=== PATIENT | female | born 1955 | race Caucasian/White ===

== ENCOUNTER 2017-07-30 16:15 | Inpatient (IN) | payer BC ==
[~2017-07-30 16:15] MED LIST: ISOVUE-370 76%-LOCM 1 ML ONE
[2017-07-30] MEDS ORDERED: Morphine 4 MG/ML VIAL ONE ×3 (19:13→21:30)
[2017-07-30] MEDS ORDERED: Ondansetron HCl/PF 4 MG/2 ML Vial ONE (19:13)
[2017-07-30 19:29] LABS: #Basophils 0.1 thou/uL (0.0-0.2); #Lymphocytes 1.6 thou/uL (1.20-3.40); #Monocytes 0.9 thou/uL (0.11-0.59); #Neutrophils 15.8 thou/uL (1.40-6.50); %Basophils 0.3 % (0.0-1.0); %Eosinophils 0.3 % (0.0-10.0); %Lymphocytes 8.8 % (21.0-51.0); %Monocytes 4.9 % (0.0-10.0); %Neutrophils 85.8 % (42.0-75.0); Hemoglobin 16.3 g/dL (12.0-16.0); Mean Corpuscular HGB CONC 34.5 g/dL (32.0-36.0); Mean Corpuscular Volume 89.8 fl (81.0-99.0); Mean Platelet Volume 9.1 fL (7.4-10.4); Platelet Count 296 thou/uL (130-400); RBC Distribution Width 13.2 % (11.5-14.5); Red Blood Cell (RBC) Count 5.27 mill/uL (4.20-5.40); White Blood Cell (WBC) Count 18.5 thou/uL (4.8-10.8)
[2017-07-30 19:42] LABS: ALT (SGPT) 16 U/L (8-55); AST (SGOT) 24 U/L (5-34); Albumin 5.1 g/dL (3.4-4.8); Alkaline Phosphatase 74 U/L (40-150); Anion Gap 20 mmol/L (10-20); BUN (Urea Nitrogen) 26 mg/dL (9.8-20.1); Bilirubin, Total 0.7 mg/dL (0.2-1.2); Calc. Creatinine Clearance 0 mL/min (70-130); Calcium 11.2 mg/dL (7.8-10.44); Carbon Dioxide 23 mmol/L (23-31); Chloride 102 mmol/L (98-107); Estimated GFR-MDRD 46; Globulin 4.1 g/dL (2.4-3.5); Glucose 153 mg/dL (80-115); Lipase 30 U/L (8-78); Potassium 3.4 mmol/L (3.5-5.1); Protein, Total 9.2 g/dL (6.0-8.3); Sodium 142 mmol/L (136-145)
[2017-07-30 21:03] LABS: Bilirubin Small (Negative); Blood, Urine Negative (Negative); Clarity CLEAR (Clear); Glucose, Urine (Dipstick) Negative (Negative); Leukocyte Trace (Negative); Nitrite Negative (Negative); Protein, Urine (Dipstick) 30 mg/dL (Neg-Trace); Urobilinogen 0.2 mg/dL (0.2-1.0); pH, Urine 5.5 (5.0-9.0)
[2017-07-30 21:05] LABS: Bacteria/HPF None Seen HPF (None Seen); Specific Gravity, Urine 1.046 (1.002-1.036)
[2017-07-30 21:06] LABS: Pathc Cast-AUWi Flag 8.14 (0-2.49)
[2017-07-30] MEDS ORDERED: Lidocaine 2% Jelly 5 ML TUBE ONE (21:08)
[2017-07-30] MEDS ORDERED: Benzocaine 20% Spray 60 ML CAN ONE (21:08)
--- NOTE | 2017-07-30 22:16 | RAD ---
ABDOMEN ONE VIEW: 07/30/17 HISTORY: 62-year-old female with nausea and vomiting and gastric distention for NG tube placement evaluation. NG tube is in place within the stomach. Lap band is in place. Minimal dilatation of the right upper r enal collecting system down to the level of the upper ureter without evidence for an obstructing calc ulus. Postoperative changes at L4-L5. IMPRESSION: NG tube in satisfactory location. Minimal dilatation of the right renal upper collecting system possi bettie from extrinsic compression from the markedly distended stomach as seen on prior CT. POS: [facility]
--- NOTE | 2017-07-30 22:58 | CT ---
ABDOMEN AND PELVIC CT SCAN WITH IV CONTRAST: 07/30/17 HISTORY: 62-year-old female with history of nausea and vomiting and abdominal pain. FINDINGS/IMPRESSION: The lung bases are clear. There is a lap band in place. Status post cholecystectomy with some dilated central intrahepatic ductal dilatation and dilated common bile duct up to 0.9 cm. There is very rob re fluid distention of the stomach as well as the first and second portions of the duodenum with an a brupt area of narrowing from dilated to nondilated appearance at the level of the third portion of th e duodenum. The fourth portion of the duodenum as well as the small bowel and colon all appear to be somewhat decompressed. There is slight focal dilatation of the right upper renal collecting system an d right extrarenal pelvis but no evidence for renal calculus or obstructing ureteral calculus. Postop erative laminectomy and fusion changes are noted at L4-L5 with fairly marked but overall stable appea ring anterolisthesis. There is some minimal fluid in the distal esophagus probably related to reflux from the distended stomach. There is mild dilatation of the right renal pelvis and upper collecting s ystem possibly secondary to some extrinsic compression from the markedly dilated second and third por tion of the duodenum. No evidence of associated obstructing calculus. Postop changes of the lumbar sp ine, stable. Findings discussed with Dr. Whitaker by phone at 8:30 p.m. Code CR POS: [facility]
[2017-07-30] MEDS ORDERED: Ondansetron HCl/PF 4 MG/2 ML Vial IVP PRN (23:32)
[2017-07-30] MEDS ORDERED: Ondansetron ODT 4 MG TAB SL PRN (23:32)
[2017-07-31] MEDS: Dextrose 5 % And 0.9 % NaCl 1,000 ML IV SCH ×3 (00:08→20:10)
[2017-07-31] MEDS ORDERED: Morphine 4 MG/ML VIAL SLOW IVP PRN ×2 (01:03→01:04)
--- NOTE | 2017-07-31 07:56 | HP ---
CHIEF COMPLAINT: Epigastric pain, nausea, vomiting. HISTORY OF PRESENT ILLNESS: The patient is a 62-year-old female who had a lap band placed in 2004. She was not able to tolerate it and three years ago, it was completely emptied for esophageal dilatat ion. She said that she has been doing okay. She ate a very large meal on Friday, afterwards felt t errible and started vomiting. Her last bowel movement was on Friday and she has not passed any flat us since then. She had an NG tube placed and she is feeling much better now. PAST MEDICAL HISTORY: Hypothyroidism, osteoarthritis, osteoporosis. PAST SURGICAL HISTORY: She has had a lap band, bilateral total knee replacement. She has had back s urgery and hysterectomy. MEDICATIONS: She is on thyroid medicine, Actonel, nose spray, vitamin B12 and D. ALLERGIES: No known drug allergies. FAMILY HISTORY: Lymphoma, prostate cancer and hypertension. 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 No tobacco, rare alcohol. PHYSICAL EXAMINATION: VITAL SIGNS: Temperature 98.3, pulse 77, blood pressure 96/87. GENERAL: She is awake, alert, does not appear to be in any distress. She is obese. HEENT: She has an NG tube. LUNGS: Clear. HEART: Regular rate and rhythm. ABDOMEN: Soft, nondistended, nontender, no palpable masses except for the lap band port that is palp able. EXTREMITIES: Unremarkable. LABORATORY DATA AND IMAGING: White count yesterday was 18.5, H&H is 16 and 47, platelet count 296. Electrolytes show an elevated glucose of 153, otherwise unremarkable. She had a CT scan that showed a very dilated stomach and first and second portions of the duodenum with an abrupt obstruction at th e third portion of the duodenum. The lap band did not appear to be the source of the obstruction. ASSESSMENT: Small-bowel obstruction of the third portion of the duodenum. PLAN: Continue NG decompression. Repeat KUB. Repeat lab. Consult GI for endoscopy.
[2017-07-31 08:43] LABS: #Lymphocytes 2.2 thou/uL (1.20-3.40); #Monocytes 1.1 thou/uL (0.11-0.59); #Neutrophils 10.4 thou/uL (1.40-6.50); %Basophils 0.1 % (0.0-1.0); %Eosinophils 0.2 % (0.0-10.0); %Lymphocytes 16.1 % (21.0-51.0); %Neutrophils 75.6 % (42.0-75.0); Hemoglobin 13.5 g/dL (12.0-16.0); Mean Corpuscular HGB CONC 33.8 g/dL (32.0-36.0); Mean Corpuscular Hemoglobin 30.6 pg (27.0-31.0); Mean Corpuscular Volume 90.6 fl (81.0-99.0); Mean Platelet Volume 8.5 fL (7.4-10.4); Platelet Count 225 thou/uL (130-400); RBC Distribution Width 13.2 % (11.5-14.5); Red Blood Cell (RBC) Count 4.39 mill/uL (4.20-5.40); White Blood Cell (WBC) Count 13.7 thou/uL (4.8-10.8)
[2017-07-31 09:09] LABS: Anion Gap 8 mmol/L (10-20); BUN (Urea Nitrogen) 22 mg/dL (9.8-20.1); Calc. Creatinine Clearance 88 mL/min (70-130); Calcium 9.2 mg/dL (7.8-10.44); Carbon Dioxide 30 mmol/L (23-31); Chloride 110 mmol/L (98-107); Estimated GFR-MDRD 71; Glucose 109 mg/dL (80-115); Potassium 3.2 mmol/L (3.5-5.1); Sodium 145 mmol/L (136-145)
--- NOTE | 2017-07-31 10:18 | RAD ---
KUB: Date: 07/31/17 INDICATION: Follow-up duodenal obstruction. COMPARISON: CT of abdomen and pelvis dated 07/30/17 and KUB performed on 07/30/17. FINDINGS: Gastric catheter unchanged. Laparoscopic gastric band is unchanged. The extent of the gastric dilatat ion containing enteric contrast, gas, and fluid, appear similar. There is contrast within the bladder consistent with patient's recent CT evaluation. Cholecystectomy clips are again noted. Posterior lum bar interbody fusion construct at L4-5 is similar. No acute osseous abnormalities are evident. IMPRESSION: Stable exam. POS: [facility]
[2017-07-31] MEDS ORDERED: Promethazine HCl 25 MG/ML VIAL IM PRN (14:16)
[2017-07-31] MEDS ORDERED: Promethazine HCl 25 MG/ML VIAL SLOW IVP PRN (14:16)
[2017-07-31] MEDS ORDERED: Ondansetron HCl/PF 4 MG/2 ML Vial IVP PRN ×2 (14:16→16:25)
[2017-07-31] MEDS ORDERED: Fentanyl 100 MCG/2 ML VIAL ONE (14:28)
[2017-07-31] MEDS ORDERED: Succinylcholine Chloride 20 MG/ML 10 ml SYRINGE FS ONE (14:35)
[2017-07-31] MEDS ORDERED: ePHEDrine/0.9% NaCl/PF SYRINGE 50 mg/10 ml ONE (14:35)
[2017-07-31] MEDS ORDERED: PROPOFOL 200 MG/20 ML VIAL ONE (14:35)
[2017-07-31] MEDS ORDERED: Lidocaine 1% PF 5 ML VIAL ONE (14:35)
--- NOTE | 2017-07-31 17:14 | OP ---
DATE OF PROCEDURE: 07/31/2017 PROCEDURE PERFORMED: Esophagogastroduodenoscopy and enteroscopy performed with a colonoscope with pl acement of Dobbhoff tube. OPERATIVE NOTE: Informed consent was obtained from the patient. She was sedated with general anesth esia. The colonoscope was advanced to the proximal jejunum. There was external compression causing a functional obstruction at the third portion of the duodenum. There was no mucosal defect in this a germaine to indicate biopsy. The mucosa beyond and proximal to this site was normal. The duodenum was ot herwise normal. The stomach had some gastritis in the body and fundus from distention along with rosalina e NG suction trauma. Otherwise, the stomach was unremarkable. There was grade C erosive esophagitis in the distal esophagus noted. The stomach was normal otherwise including retroflexed views. There was an impression of the lap band a couple of centimeters below the GE junction has to be expected. The Dobbhoff tube was placed into the stomach and then grasped with a biopsy forceps. The Dobbhoff t ube was advanced into the second portion of the duodenum; however, could not be advanced beyond the c ompressing segment well. The Dobbhoff tube was then grasped at the tip of the tube with a snare and pulled through beyond the area of compression and to the distal duodenum, however, when the Dobbhoff tube was released from the snare to then, placed a Hemoclip to hold in place a Dobbhoff tube just fel l back into the stomach. Ultimately, a Resolution Hemoclip was used to then grasp suture that was pl aced and the end of the Dobbhoff tube and that was used to pull the tip of the Dobbhoff tube forward and then the clip was used to attach the end of the Dobbhoff tube to the mucosa of the small bowel di stal to the obstructing segment. This took a prolonged period of time and was difficult to advance t he tube and scope beyond the area in the small bowel of compression. Ultimately, the tube was placed and the scope was pulled back and a Dobbhoff tube remained appeared to remain in good position. Fin ally, the NG tube was then replaced to decompress the stomach. IMPRESSION: 1. Grade C erosive esophagitis in the distal esophagus. 2. Retained vegetable material in the fundus and proximal body of the stomach. This was too solid t o suction out with the scope. 3. Gastritis in the body and fundus of the stomach, likely secondary to gastric distention. There w as some nasogastric trauma noted. The impression from the lap band was noted a couple of centimeters below the gastroesophageal junction. 4. Functional obstruction in the third portion of the duodenum secondary to external compression. 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 There is no mucosal lesion in this area. The small bowel proximal and distal to this all the way down to the proximal jejunum appears normal . 5. A Dobbhoff tube was placed to the fourth portion of the duodenum. This was attached using a reso lution clip attaching this to a suture placed to the end of the Dobbhoff tube and attaching it to the mucosa. 6. Nasogastric tube was placed to decompress the stomach. RECOMMENDATIONS: 1. NG tube to low intermittent suction. 2. Check an abdominal x-ray to confirm the area of placement of the Dobbhoff tube. 3. It should be okay to feed through the Dobhoff tube pending results of the x-ray and her clinical course.
--- NOTE | 2017-07-31 17:59 | RAD ---
KUB: 07/31/17 HISTORY: 62-year-old female with history of evaluating Dobhoff tube placement. An NG tube is in place. Lap ban d is in place. The Dobhoff tube appears to extend through the pylorus, C-loop and into the region of the fourth portion of the duodenum and probably the proximal jejunum with a small associated clip. IMPRESSION: Dobhoff tube in place. Findings discussed with Dr. Plasencia at 5:20 p.m. Code CR POS: [facility]
--- NOTE | 2017-07-31 18:04 | CON ---
DATE OF CONSULTATION: 07/31/2017 CHIEF COMPLAINT: Nausea and vomiting. HISTORY OF PRESENT ILLNESS: Ms. Carroll is a 62-year-old woman who had sudden onset of nausea and vomiting and diffuse aching abdominal pain that started the day before yesterday. She vomited multi ple times throughout the day. She tried going on a liquid diet or clear liquids and just continued t o vomit though, so she ultimately came onto the emergency room yesterday after feeling weak and dehyd rated. She had imaging performed which showed marked distention of the stomach and dilation of the f irst and second portions of the small bowel up to the third portion of the small bowel. She had an N G tube placed to suction and had a large amount of fluid returned and she had immediate relief of the nausea and pain. She quit putting output through the NG tube and then her pain came back this morni ng. She received some morphine for that. When she came downstairs to the preop area, but prior to e ndoscopy, she shifted her body and the suction tubing and she then immediately had another 600 mL ret urn from the NG tube and again her pain and nausea immediately resolved. She has had no nausea or vo miting prior to this. She had a lap band placed in 2004. She lost from 280 pounds to 170 pounds ove r the first couple years of having the lap band. Her weight has been fairly stable over the last few years. Three years ago, she had esophageal symptoms and underwent endoscopy by Dr. Moreland. She had all the fluid removed from her lap band by Dr. Olvera and she has done fine over the last 3 years up u ntil now. Her weight has been stable recently. Abdominal pain leading up to this. No diarrhea, con stipation or blood in the stool. PAST MEDICAL HISTORY: Hypothyroidism, osteoarthritis, and osteoporosis. PAST SURGICAL HISTORY: Bilateral total knee replacements, back surgery with hardware, hysterectomy, lap band endoscopy, and cholecystectomy. FAMILY HISTORY: Positive for lymphosarcoma in her father. There is no family history of GI malignan cy. SOCIAL HISTORY: Alcohol, maybe 3 times per year. No drugs or smoking. ALLERGIES: No known drug allergies. MEDICATIONS: Prior to admission, thyroid medicine and Actonel, B12, vitamin D. REVIEW OF SYSTEMS: Negative x10 systems reviewed except as stated in history of present illness. PHYSICAL EXAMINATION: VITAL SIGNS: Temperature 98.7, pulse 64, blood pressure 116/73. GENERAL: She is in no acute distress. She is alert and oriented x3. She has an NG tube in place. HEENT: Eyes have no scleral icterus. Oropharynx is clear without lesions. NECK: No cervical or supraclavicular lymphadenopathy. LUNGS: Clear to auscultation bilaterally. HEART: Regular rate and rhythm. ABDOMEN: Soft, currently nontender, nondistended. Bowel sounds are present. EXTREMITIES: No lower extremity edema. LABORATORY DATA: White blood cell count on presentation was 18.5 yesterday, down to 13.7 today. Her hemoglobin was 16.3 yesterday and came down to 13.5 with hydration, platelets 225. Creatinine 0.81 today, down from 1.19 yesterday. Sodium 145, potassium 3.2, chloride 110, CO2 30, calcium 9.2, bilir ubin 0.7, AST 24, ALT 16, alkaline phosphatase 74, albumin was 5.1 yesterday prior to hydration and l ipase 30. CT scan of the abdomen and pelvis yesterday showed the lap band to be in place. Changes w ith prior cholecystectomy were noted. Severe fluid distention of the stomach, and first and second p ortions of the duodenum were noted with an abrupt area of narrowing at the level of the third portion of the duodenum. The distal duodenum was decompressed. IMPRESSION: Proximal obstruction of the upper GI tract at the level of the third portion of the duod enum. She has marked dilation of the second and first portions of the duodenum and stomach. She had immediate relief of her symptoms with NG decompression. She did lose 110 pounds following lap band; however, that has been 10 years ago almost. At this point, SMA syndrome is possible; however, would not seem likely. Endoscopy is planned to rule out an obstructing ulcer or neoplastic process. PLAN: Enteroscopy/EGD today.
[2017-07-31] MEDS ORDERED: Chloraseptic Spray 180 ml Bottle PO PRN (20:59)
[2017-08-01 04:19] LABS: #Lymphocytes 2.1 thou/uL (1.20-3.40); #Monocytes 0.9 thou/uL (0.11-0.59); #Neutrophils 8.2 thou/uL (1.40-6.50); %Basophils 0.2 % (0.0-1.0); %Eosinophils 0.3 % (0.0-10.0); %Lymphocytes 18.7 % (21.0-51.0); %Monocytes 8.3 % (0.0-10.0); %Neutrophils 72.5 % (42.0-75.0); Hemoglobin 12.4 g/dL (12.0-16.0); Mean Corpuscular HGB CONC 34.6 g/dL (32.0-36.0); Mean Corpuscular Hemoglobin 31.8 pg (27.0-31.0); Mean Corpuscular Volume 91.7 fl (81.0-99.0); Platelet Count 168 thou/uL (130-400); RBC Distribution Width 13.4 % (11.5-14.5); White Blood Cell (WBC) Count 11.3 thou/uL (4.8-10.8)
[2017-08-01] MEDS: Dextrose 5 % And 0.9 % NaCl 1,000 ML IV SCH (06:03)
[2017-08-01] MEDS: D5 1/2 NS w/20 mEq KCL 1,000 ML IV SCH ×3 (10:08→20:46)
--- NOTE | 2017-08-01 10:52 | RAD ---
TWO SEPARATE IMAGES FROM A KUB: INDICATION: Duodenal obstruction. COMPARISON: Prior exam dated 07/31/17 at 5:04 p.m. FINDINGS: Dobbhoff feeding tube tip projects in the region of the jejunum. Gastric catheter projects in the re gion of the gastric body. Bowel gas pattern is not appreciably changed. The gastric band is unchang ed. Scattered interstitial prominence involving the lung bases is similar. Cholecystectomy clips ar e again seen within the right upper quadrant. There are postsurgical changes involving the lower lum bar spine. There are scattered degenerative changes. IMPRESSION: Stable. POS: [facility]
[2017-08-01] MEDS ORDERED: Pantoprazole 40 MG VIAL IVP SCH (11:00)
[2017-08-01] MEDS: Pantoprazole 40 MG VIAL IVP SCH (20:46)
--- NOTE | 2017-08-01 23:07 | PRG ---
DATE OF SERVICE: 08/01/2017 SUBJECTIVE: Ms. Carroll can feel when her stomach gets more distended and then when the NG suctio n repositions and suctions more fluid out, she feels better. She is tolerating her Dobbhoff tube fee ds at a slow rate so far well. She has had no vomiting. She has no pain currently. OBJECTIVE: VITAL SIGNS: Temperature 99.0, pulse 60, blood pressure 127/77. GENERAL: She is in no acute distress. She is awake and alert, oriented x3. HEENT: Eyes have no scleral icterus. Oropharynx is clear, without lesions. NECK: No cervical or supraclavicular lymphadenopathy. LUNGS: Clear to auscultation bilaterally. HEART: Regular rate and rhythm without murmur. ABDOMEN: Soft, minimal tenderness in the epigastric region without guarding. Bowel sounds are prese nt. EXTREMITIES: No lower extremity edema. LABORATORY DATA: White blood cell count 11.3 down from 18.5 on presentation, hemoglobin 12.4, platel ets 168, creatinine 0.81. IMPRESSION: Obstruction at the third or fourth portion of the duodenum, which could be from compress ion from gastric distention. Some degree of superior mesenteric artery syndrome has been considered; however, this does not appear to be at the area of the acute angle and does not appear to be obvious ly impinged by these arteries. There was significant external compression, however, and she still co ntinues to have significant NG output despite suction all day today. Hopefully, as her stomach decom presses and the muscles are able to start liza again, we will see clinical improvement. In e meantime, she can continue with the Dobbhoff tube feeds. PLAN: 1. Continue suction with the NG tube. 2. Continue feeds through the Dobbhoff tube.
[2017-08-02] MEDS: D5 1/2 NS w/20 mEq KCL 1,000 ML IV SCH ×4 (02:09→15:57)
[2017-08-02] MEDS: Levothyroxine 100 MCG SDV IVP SCH (05:15)
[2017-08-02] MEDS: Pantoprazole 40 MG VIAL IVP SCH ×2 (08:35→20:27)
--- NOTE | 2017-08-02 08:51 | PDOC.GSPN ---
Surgery Progress Note: Subj - Subjective Patient reports: no new complaints, feels better (no nausea or vomiting) Surgery Progress Note: Obj - Vital signs Vital signs: Vital Signs - Most Recent Temp Pulse Resp BP Pulse Ox 98.4 F 65 16 122/75 94 L 08/02/17 07:42 08/02/17 07:42 08/02/17 07:42 08/02/17 07:42 08/02/17 07:42 - Physical Exam General: no distress Cardiovascular: regular rate and rhythm Respiratory: clear to auscultation Abdomen: soft, non tender, nondistended Surgery Progress Note: Results - Labs Result Diagrams: 08/01/17 03:12 07/31/17 08:00 Surgery Progress Note: A/P - Problem (1) Duodenal obstruction Current Visit: Yes Code(s): K31.5 - OBSTRUCTION OF DUODENUM Status: Acute Assessment and Plan: Continue TF and stomach decompression. Her NG output has dropped off, expect will need NG for next few days. Gastrojejunostomy next week if obstruction fails to resolve
[2017-08-02] MEDS ORDERED: Potassium Chloride 40 MEQ in Premix Bag 1 BAG IVPB SCH (09:00)
--- NOTE | 2017-08-02 15:11 | PRG ---
DATE OF SERVICE: 08/02/2017 SUBJECTIVE: Ms. Carroll has no abdominal pain or nausea. She has had the NG tube to suction and has continued to put out around 400 mL over the course of the morning. She is tolerating her tube fe eds well. She had a very small bowel movement today. PHYSICAL EXAMINATION: VITAL SIGNS: Temperature 98.8, pulse 67, blood pressure 132/78. GENERAL: She is in no acute distress, alert and oriented x3. LUNGS: Clear to auscultation bilaterally. HEART: Regular rate and rhythm. ABDOMEN: Soft, nontender, nondistended. Bowel sounds are present. EXTREMITIES: No lower extremity edema. IMPRESSION: Duodenal obstruction, apparently from external compression as there is no mucosal defect identified endoscopically. PLAN: 1. Continue NG tube decompression. 2. She is tolerating her tube feeds well, currently at goal. The Dobbhoff tube is placed beyond the obstruction. 3. The next step would be Gastrografin study to determine if the obstruction is opening up after gas tric decompression. Timing of this will be determined by General Surgery, possibly around Friday.
[2017-08-03] MEDS: D5 1/2 NS w/20 mEq KCL 1,000 ML IV SCH ×2 (01:44→05:46)
[2017-08-03] MEDS: Levothyroxine 100 MCG SDV IVP SCH (01:44)
[2017-08-03 04:37] LABS: Anion Gap 6 mmol/L (10-20); BUN (Urea Nitrogen) 7 mg/dL (9.8-20.1); Calc. Creatinine Clearance 112 mL/min (70-130); Calcium 8.3 mg/dL (7.8-10.44); Carbon Dioxide 30 mmol/L (23-31); Chloride 106 mmol/L (98-107); Estimated GFR-MDRD 87; Glucose 106 mg/dL (80-115); Sodium 139 mmol/L (136-145)
[2017-08-03 05:25] VITALS: BMI 34.2
[2017-08-03] MEDS: Pantoprazole 40 MG VIAL IVP SCH ×2 (09:31→21:30)
--- NOTE | 2017-08-03 10:37 | PRG ---
DATE OF SERVICE: 08/03/2017 SUBJECTIVE: Ms. Carroll feels better. She has had a few small bowel movements and she is passing gas. No persistent nausea. She is afebrile. Vital signs are stable and her NG output is down. Brooklynn thayer is tolerating the tube feeds. ASSESSMENT: Gastric outlet obstruction in third portion of duodenum. NG output seems to be down now and it appears not as bilious. PLAN: We will order a Gastrografin or barium study to assess for gastric emptying tomorrow. Seems to be less NG output, I suspect it will be more passage now. Continue tube feeds for now.
--- NOTE | 2017-08-03 15:09 | PRG ---
DATE OF SERVICE: 08/03/2017 SUBJECTIVE: Ms. Carroll says she feels better overall. She is tolerating the Dobbhoff tube feeds well. She had a few small bowel movements yesterday, but none so far today. No vomiting. She has had the NG tube still to intermittent suction. OBJECTIVE: VITAL SIGNS: Temperature 99.3, pulse 58, blood pressure 133/77. GENERAL: She is in no acute distress, awake and alert. LUNGS: Clear to auscultation bilaterally. HEART: Regular rate and rhythm. ABDOMEN: She has the Dobbhoff tube and NG tube in place. EXTREMITIES: Have no lower extremity edema. LABORATORY DATA: Creatinine 0.68. IMPRESSION: Duodenal obstruction from apparent external compression. There is no mucosal defect on endoscopy. She has a Dobbhoff beyond the obstruction and an NG tube in place to suction. RECOMMENDATIONS: The plan is for small bowel follow through with upper GI tomorrow with Gastrografin .
[2017-08-04] MEDS: D5 1/2 NS w/20 mEq KCL 1,000 ML IV SCH ×2 (02:14→08:00)
[2017-08-04] MEDS: Levothyroxine 100 MCG SDV IVP SCH (05:30)
[2017-08-04] MEDS: Pantoprazole 40 MG VIAL IVP SCH ×2 (08:02→21:05)
--- NOTE | 2017-08-04 08:49 | PRG ---
DATE OF SERVICE: 08/04/2017 SUBJECTIVE: Ms. Carroll had a formed bowel movement last night. She has no abdominal pain or saritha sea. Having more of a clear brown output from the NG tube. PHYSICAL EXAMINATION: VITAL SIGNS: Temperature 97.7, pulse 65, blood pressure 136/84. GENERAL: She is in no acute distress, awake and alert. LUNGS: Clear to auscultation bilaterally. HEART: Regular rate and rhythm. ABDOMEN: Soft, nontender, nondistended. Bowel sounds are present. EXTREMITIES: No lower extremity edema. IMPRESSION: Duodenal obstruction. PLAN: Gastrografin study today.
--- NOTE | 2017-08-04 12:53 | RAD ---
SMALL BOWEL FOLOW THROUGH: HISTORY: History of duodenal obstruction. FINDINGS: [employer] images demonstrate a Dobbhoff feeding, the tip seen within the region of the jejunum. There is a gastric catheter tip within the region of the proximal gastric body. Cholecystectomy clips were s een in the right upper quadrant. There is postsurgical change of a posterolateral interbody fusion o f L4-5 that is stable. The bowel gas pattern is unobstructed. Subsequent images demonstrate contrast opacification of the stomach with contrast flowing freely acro ss the duodenum and duojejunal junction. Subsequent images were obtained over an hour and a half wh ch demonstrated normal small bowel caliber and mucosal pattern. The stomach is of normal size. The duodenum appeared normal in caliber. IMPRESSION: 1. No evidence of significant small bowel obstruction. The stomach is markedly less distended than seen on a comparison CT dated 07/30/17. 2. Small bowel follow through time of 1 hour and 30 minutes. POS: [facility]
[2017-08-04] MEDS ORDERED: MD-Gastroview 120 ML BOT ONE (14:51)
[2017-08-05] MEDS: D5 1/2 NS w/20 mEq KCL 1,000 ML IV SCH ×2 (03:58→17:35)
[2017-08-05] MEDS: Levothyroxine 100 MCG SDV IVP SCH (04:40)
[2017-08-05] MEDS: Pantoprazole 40 MG VIAL IVP SCH ×2 (07:52→21:20)
--- NOTE | 2017-08-05 14:08 | TCOM ---
DATE OF SERVICE: 08/05/2017 SUBJECTIVE: The patient is feeling much better. She is tolerating clear liquids well. No nausea or vomiting. Her NG has been clamped since yesterday. The upper GI showed no obstruction. OBJECTIVE: VITAL SIGNS: Temperature is 98, pulse 72, and blood pressure 124/82. GENERAL: She looks fine. She walks around. ABDOMEN: Soft, nondistended, nontender. ASSESSMENT: Obstruction, resolved. PLAN: Full liquid diet. Discontinue tube feedings. Discontinue NG tube, home soon.
--- NOTE | 2017-08-06 | PRG ---
DATE OF SERVICE: 08/05/2017 SUBJECTIVE: Ms. Cardoso has tolerated full liquids pretty well so far today. She felt pressure a nd fullness in her epigastric region initially then got up and walked around and that improved. OBJECTIVE: VITAL SIGNS: Temperature 98.3, pulse 72, blood pressure 110/71. GENERAL: She is in no acute distress, awake and alert. Her NG tube is out. Her Dobbhoff tube is in place. LUNGS: Clear to auscultation bilaterally. HEART: Regular rate and rhythm. ABDOMEN: Soft, nontender, nondistended. Bowel sounds are present. EXTREMITIES: No lower extremity edema. IMPRESSION: Duodenal obstruction. This is clinically improved and the small bowel x-ray showed cont rast passed through the obstruction well. She has the Dobhoff tube in place, anchored by a clip to t he proximal jejunum. RECOMMENDATIONS: 1. Advance to a low residue diet when okay with General Surgery. 2. We will leave the Dobbhoff tube in place to verify that she is tolerating solid foods for several days before we pulled the Dobbhoff tube. Once the Dobbhoff tube is ready to come out. If it appear s to be anchored firmly to the small bowel then we will plan enteroscopy to relook at the clip site w hen it is time to remove the tube, so this can be done under direct visualization and treatment could be potentially applied if any bleeding occurs at the site of removal of the clip. Usually these cli ps will just necrose and slough off after about a week; however, they can remain for a longer period and therefore, traction might need to be applied to remove the clip again under direct visualization, if it does not come loose on its own. I would anticipate this would be done as an outpatient qamar rubalcava days after she is tolerating solid diet.
[2017-08-06] MEDS: Levothyroxine 100 MCG SDV IVP SCH (05:32)
[2017-08-06] MEDS: D5 1/2 NS w/20 mEq KCL 1,000 ML IV SCH (05:33)
--- NOTE | 2017-08-06 08:10 | DIS ---
DISCHARGE DIAGNOSIS: Duodenal obstruction due to gastric over distention with closed loop obstructio n. PROCEDURES DURING ADMISSION: CT scan of abdomen and pelvis, EGD, placement of distal feeding tube be yond obstructive point. HOSPITAL COURSE: The patient was admitted, given IV fluids. CT scan showed a massive stomach. NG t ube was placed. It was full of solid food. Some relief was obtained just by doing the suction. EGD was performed that did not show any physical luminal obstruction, but an extrinsic compression. In review with the radiologist, it appeared that the stomach had become so massively dilated it was putt ing pressure on the duodenum. A feeding tube was placed distal to this obstruction and held in place with a clip by the manager of radiology. She did well. Everything went through. She is now feeling fine. Repeat swallow study was fine. She was started on liquids. She is tolerating them well. She is discharged home with the feeding tube in place. The manager of radiology does not want to pull it out at this point, because it was so hard to put in. He wants to keep her on a soft diet. He will s ee her back in 2 weeks.
[2017-08-06] MEDS: Pantoprazole 40 MG VIAL IVP SCH (09:31)
[2017-08-06 09:40] VITALS: BP 118/76
[2017-08-06 12:07] VITALS: TEMP 97.9
--- NOTE | 2017-08-06 12:47 | PRG ---
DATE OF SERVICE: 08/06/2017 SUBJECTIVE: Ms. Carroll is tolerating a full liquid diet well. PHYSICAL EXAMINATION: VITAL SIGNS: Temperature 97.9, pulse 56, blood pressure 118/76. GENERAL: She is in no acute distress. She is alert and oriented x3. LUNGS: Clear to auscultation bilaterally. HEART: Regular rate and rhythm. ABDOMEN: Soft, nontender, nondistended. Bowel sounds are present. EXTREMITIES: No lower extremity edema. IMPRESSION: Duodenal obstruction, apparently from external compression. This has been better with d ecompression of her stomach. She is tolerating a full liquid diet well so far. RECOMMENDATIONS: 1. She should be able to advance to a low residue diet as tolerated based on General Surgery recomme ndations. 2. Follow up in the office in 1 week. If she continues to tolerate a solid diet well, then the next day we can perform enteroscopy to assist removal of the Dobbhoff tube which is anchored in place in the distal duodenum/proximal jejunum with a clip.
== END 2017-08-06 12:55 | disposition home or self-care (01) | DRG 382 ==
LOC: ERS 16:15 → SURG A 23:15
PROVIDERS: ADMIT Surgery; ATTEND Surgery
PROC: 0DH98UZ Insertion of Feeding Device into Duodenum, Via Natural or Artificial Opening Endoscopic (ICD-10-PCS; principal; 2017-07-31)
PROC: 0DJ08ZZ Inspection of Upper Intestinal Tract, Via Natural or Artificial Opening Endoscopic (ICD-10-PCS; 2017-07-31)
DX: K31.5 Obstruction of duodenum (principal); E03.9 Hypothyroidism, unspecified; M81.0 Age-related osteoporosis without current pathological fracture; K29.70 Gastritis, unspecified, without bleeding; K20.8 Other esophagitis; K31.89 Other diseases of stomach and duodenum; Z79.899 Other long term (current) drug therapy; Z96.653 Presence of artificial knee joint, bilateral
CPT/HCPCS: 36415; 74018; 74177; 74250; 80048; 80053; 81003; 81015; 83690; 85025; 96361; 96374; 96375; 96376; A4216; C9113; J2001; J2270; J2405; J2704; J3010

== ENCOUNTER 2017-08-12 16:14 | Outpatient (CLI) | payer BC | END 2017-08-14 16:15 | disposition home or self-care (01) | LOC: BICRAD 08-14 16:14 | PROVIDERS: ATTEND Internal Medicine Gastroenterology | DX: Z43.1 Encounter for attention to gastrostomy (principal) | CPT/HCPCS: 74018 ==

== ENCOUNTER 2017-10-22 19:30 | Outpatient (CLI) | payer BC | END 2017-10-22 19:31 | disposition home or self-care (01) | LOC: SLEEPLAB 19:30 | PROVIDERS: ATTEND Otolaryngology | DX: G47.33 Obstructive sleep apnea (adult) (pediatric) (principal) | CPT/HCPCS: 95810 ==

== ENCOUNTER 2017-10-26 19:30 | Outpatient (CLI) | payer BC | END 2017-10-26 19:31 | disposition home or self-care (01) | LOC: SLEEPLAB 19:30 | PROVIDERS: ATTEND Otolaryngology | DX: G47.33 Obstructive sleep apnea (adult) (pediatric) (principal) | CPT/HCPCS: 95811 ==

== ENCOUNTER 2018-01-13 19:30 | Outpatient (CLI) | payer BC | END 2018-01-13 19:31 | disposition home or self-care (01) | LOC: SLEEPLAB 19:30 | PROVIDERS: ATTEND Internal Medicine | DX: G47.33 Obstructive sleep apnea (adult) (pediatric) (principal); E66.9 Obesity, unspecified; Z68.28 Body mass index [BMI] 28.0-28.9, adult | CPT/HCPCS: 95810 ==

== ENCOUNTER 2018-03-25 12:02 | Outpatient (CLI) | payer BC | END 2018-03-25 12:03 | disposition home or self-care (01) | LOC: BICMAMMO 12:02 | PROVIDERS: ATTEND Obstetrics & Gynecology | DX: Z12.31 Encounter for screening mammogram for malignant neoplasm of breast (principal); Z80.3 Family history of malignant neoplasm of breast | CPT/HCPCS: 77063; 77067 ==

== ENCOUNTER 2018-07-20 09:05 | Inpatient (IN) | payer BC ==
[2018-07-20] MEDS ORDERED: Morphine 4 MG/ML VIAL ONE ×2 (09:53→11:00)
[2018-07-20] MEDS ORDERED: Ondansetron PF 4 MG/2 ML Vial ONE ×3 (09:54→14:11)
[2018-07-20 09:58] LABS: #Lymphocytes 1.5 thou/uL (1.20-3.40); #Monocytes 0.4 thou/uL (0.11-0.59); #Neutrophils 7.9 thou/uL (1.40-6.50); %Basophils 0.1 % (0.0-1.0); %Eosinophils 0.2 % (0.0-10.0); %Lymphocytes 15.5 % (21.0-51.0); %Monocytes 3.6 % (0.0-10.0); %Neutrophils 80.6 % (42.0-75.0); Hemoglobin 15.1 g/dL (12.0-16.0); Mean Corpuscular HGB CONC 33.2 g/dL (32.0-36.0); Mean Corpuscular Hemoglobin 30.3 pg (27.0-31.0); Mean Corpuscular Volume 91.2 fL (78.0-98.0); Mean Platelet Volume 9.4 fL (7.4-10.4); Platelet Count 228 thou/uL (130-400); RBC Distribution Width 13.5 % (11.5-14.5); Red Blood Cell (RBC) Count 5.01 mill/uL (4.20-5.40); White Blood Cell (WBC) Count 9.8 thou/uL (4.8-10.8)
[2018-07-20 10:20] LABS: ALT (SGPT) 19 U/L (8-55); AST (SGOT) 21 U/L (5-34); Albumin 4.6 g/dL (3.4-4.8); Alkaline Phosphatase 92 U/L (40-150); Anion Gap 14 mmol/L (10-20); BUN (Urea Nitrogen) 16 mg/dL (9.8-20.1); Bilirubin, Total 0.8 mg/dL (0.2-1.2); Calc. Creatinine Clearance 0 mL/min (70-130); Calcium 11.5 mg/dL (7.8-10.44); Carbon Dioxide 30 mmol/L (23-31); Chloride 105 mmol/L (98-107); Estimated GFR-MDRD 59; Globulin 3.6 g/dL (2.4-3.5); Glucose 134 mg/dL (80-115); Lipase 48 U/L (8-78); Potassium 3.6 mmol/L (3.5-5.1); Protein, Total 8.2 g/dL (6.0-8.3); Sodium 145 mmol/L (136-145)
[2018-07-20] MEDS ORDERED: Benzocaine 20% Spray 60 ML CAN ONE (11:12)
--- NOTE | 2018-07-20 11:32 | CT ---
CT ABDOMEN WITH CONTRAST CT PELVIS WITH CONTRAST: DATE: 07/20/18 HISTORY: 63-year-old female with abdominal pain for 1 day, and vomiting. History of SMA syndrome. COMPARISON: 07/30/17. TECHNIQUE: IV injection of iodinated contrast media: Isovue-M 300. Oral contrast media: Not administered. FINDINGS: Lap band again noted. Cholecystectomy clips again noted. Diffuse dilation of intrahepatic and extrahe patic biliary tree, unchanged. No focal solid or cystic liver mass. No abdominal aortic aneurysm. Mil dly dilated extrarenal pelvis on the right with mild dilation of calices, unchanged. No left hydronep hrosis. No splenomegaly. Stomach is again distended with fluid and high density material ingested con tents. The gastric distention is not as severe as previously. Abrupt transition of caliber of duodenu m, which is dilated and fluid-filled at the first and second stages, then abruptly becomes very narro w throughout its third stage. Jejunal and ileal loops are nondilated. In fact, ileal loops are collap sed, similar to previous CT. No signs of colonic diverticulitis. Unremarkable urinary bladder. Append ix difficult to identify. Bilateral pedicle screws at two levels in the lower lumbar spine. No ascite s or pneumoperitoneum. No pleural effusion. Lap band at esophagogastric junction. IMPRESSION: 1. Recurrence of gastric and proximal duodenal distention with abrupt transition point between secon d and third stages of the duodenum. Third stage of duodenum severely narrowed. 2. This is suspicious for superior mesenteric artery (SMA) syndrome. 3. Diffuse dilation of the biliary tree. This is unchanged, and is probably due to status post vance cystectomy. 4. Laparoscopic gastric band. JNR POS: KIRILL
[2018-07-20] MEDS ORDERED: Zolpidem Tartrate 5 MG TAB PO PRN (12:21)
[2018-07-20] MEDS ORDERED: Acetaminophen 650 MG Suppository PR PRN (12:21)
[2018-07-20] MEDS ORDERED: Ondansetron PF 4 MG/2 ML Vial IVP PRN (12:21)
[2018-07-20] MEDS ORDERED: Morphine 4 MG/ML VIAL SLOW IVP PRN (12:23)
--- NOTE | 2018-07-20 13:04 | HP ---
PRIMARY CARE PROVIDER: Dr. Barney. CHIEF COMPLAINT: The patient was referred to [facility] by [facility] Emergency Department for a small bowel obstruction. HISTORY OF PRESENT ILLNESS: "I overate and blocked my stomach." It happened before in 2018; at that time, Dr. Plasencia put a feeding tube in past the obstruction. Today, she presented with severe abdominal pain, nausea, and vomiting. No hematemesis. No melena. Nasogastric tube was put in the emergency room and she is currently comfortable. PAST MEDICAL HISTORY: Superior mesenteric artery syndrome; osteoarthritis; and hypothyroidism, on therapy. ALLERGIES: NONE. PAST SURGICAL HISTORY: Two lumbar spine surgeries; bilateral total knee replacement; lap band procedure, bariatric; hysterectomy; and cholecystectomy. FAMILY HISTORY: Father of lymphoma. Brother has prostate cancer and hypertension and other brothers had a mini stroke. SOCIAL HISTORY: . Full code status. next of kin. No tobacco. Very occasional alcohol, mainly when she goes to [place] to [facility]. REVIEW OF SYSTEMS: GENERAL: No headaches, dizziness, or fainting. HEENT: Eyes; no double vision, blurred vision, or flashing lights. Ears, no ear pain or drainage. No nasal bleeding. No trouble swallowing. CARDIAC: No chest pain, orthopnea, or paroxysmal nocturnal dyspnea. RESPIRATORY: No cough, wheezing, or asthma. GASTROINTESTINAL: See present illness. GENITOURINARY: No hematuria or dysuria. MUSCULOSKELETAL: No pain or swelling in arms or legs. NEUROLOGIC: No strokes, seizures, or focal weakness. PSYCHIATRIC: No anxiety or depression. SKIN: She has occasional rash on her arms and legs. She uses steroid cream. HEME/LYMPH: No tender or swollen lymph nodes in axilla, inguinal, or cervical area. PHYSICAL EXAMINATION: VITAL SIGNS: Blood pressure 134/79, pulse 69, and respirations 19. No pain at present. Room air sat 95%. HEAD, EYES, EARS, NOSE, AND THROAT: Revealed pupils are equal, round, reactive to light. Extraocular movements are intact. Sclerae are white. Tympanic membranes are clear. Nose is clear. Oral mucous membranes are wet. Dental hygiene is good. NECK: Supple without jugular venous distention, adenopathy, or thyromegaly. CHEST: Clear to auscultation and percussion. HEART: Regular rate and rhythm. First and second heart sounds are clear. No murmurs or gallops. ABDOMEN: Soft. Bowel sounds are present. There is no tenderness. No masses. No bruits. EXTREMITIES: Reveal no cyanosis, clubbing, or edema. PULSES: Carotid, radial, femoral, and dorsalis pedis pulses are intact. SKIN: Warm and dry without bruises or rash. HEME/LYMPH: No tender or swollen lymph nodes in the axilla, inguinal, or cervical area. NEUROLOGIC: Cranial nerves 2 through 12 are intact. Deep tendon reflexes symmetric. LABORATORY DATA: CBC is normal. Comprehensive metabolic profile shows a calcium of 11.5 and a glucose of 134, otherwise normal. IMAGING STUDIES: Abdominal and pelvis CT is consistent with bowel obstruction secondary to superior mesenteric artery syndrome. There is no EKG or chest x-ray presented. CT scan was reviewed by me. ADMITTING DIAGNOSES: 1. Small-bowel obstruction. 2. Superior mesenteric artery syndrome. 3. Nausea and vomiting. 4. Abdominal pain. 5. Hypothyroidism. PLAN: NG tube to suction, IV fluids, IV antiemetics, and morphine sulfate as needed for pain. Consult Gastroenterology, Dr. Plasencia. Job ID: [id number]
[2018-07-20] MEDS ORDERED: Dexamethasone 20 MG/5 ML VIAL ONE (14:11)
[2018-07-20] MEDS ORDERED: Lidocaine 1% PF 5 ML VIAL ONE (14:11)
[2018-07-20] MEDS ORDERED: Succinylcholine Chloride 20 MG/ML 10 ml SYRINGE FS ONE (14:11)
[2018-07-20] MEDS ORDERED: PROPOFOL 200 MG/20 ML VIAL ONE (14:11)
[2018-07-20] MEDS ORDERED: ePHEDrine 50 MG/ML VIAL ONE (14:11)
[2018-07-20] MEDS ORDERED: Rocuronium Bromide 10 MG/ML (10ML VIAL) ONE (14:11)
[2018-07-20] MEDS: Sodium Chloride 0.9% 1,000 ML IV SCH ×2 (14:41→23:12)
[2018-07-20 14:48] VITALS: BMI 30.1
[2018-07-20] MEDS ORDERED: ISOVUE-370 76%-LOCM 1 ML ONE (17:19)
[2018-07-20] MEDS: Famotidine/PF 20 mg/2ml Vial SLOW IVP SCH (20:07)
[2018-07-20] MEDS ORDERED: Fentanyl 100 MCG/2 ML VIAL ONE (21:13)
--- NOTE | 2018-07-20 23:00 | CON ---
DATE OF CONSULTATION: 07/20/2018 REASON FOR CONSULTATION: Probable SMA syndrome. CONSULTING PHYSICIAN: Enzo Hollins MD HISTORY OF PRESENT ILLNESS: The patient is a 63-year-old female with past medical history of osteoarthritis, hypothyroidism, obesity status post Lap-Band procedure and SMA syndrome, presenting with complaints of nausea and vomiting. She states that she was in her usual state of health until approximately yesterday afternoon when she began having increased nausea, vomiting, and mild abdominal pain located primarily in the midepigastric region. She had attended a function where she had consumed a cookie, watermelon, strawberry and afterward a strawberry Blizzard and after she had eaten these foodstuffs, began to experience increased nausea. The nausea worsened to the point where she had vomiting x1 at home with the expression of a large amount of fluid. This was also associated with increased abdominal bloating and lower abdominal pain characterized as more of a cramping type sensation. With her prior history of SMA syndrome and with her symptoms being very similar to a prior episode, it prompted her to seek healthcare assistance at [facility]. On admission in the ER, she had a CT scan that was consistent with an SMA syndrome and an NG tube was subsequently placed in the emergency room with decompression of the upper GI tract. Upon placement of the NG tube, she experienced significant relief from her nausea and has had no further episodes of vomiting since its placement. Currently, she denies any nausea, vomiting, fevers, chills, abdominal pain, or GI bleeding. REVIEW OF SYSTEMS: A 10-category review of systems was obtained with all responses negative except for the pertinent positives as listed in HPI. PAST MEDICAL HISTORY: As per HPI. PAST SURGICAL HISTORY: Two lumbar spine surgeries, bilateral total knee replacements, hysterectomy, cholecystectomy, and Lap-Band procedure. FAMILY HISTORY: Denies any GI malignancies. SOCIAL HISTORY: Denies tobacco or illicit drug use. Drinks approximately 1-2 drinks every 1 to 2 months. OUTPATIENT MEDICATIONS: Reviewed. ALLERGIES: NO KNOWN DRUG ALLERGIES. PHYSICAL EXAMINATION: VITAL SIGNS: Temperature 98.3, pulse 61, blood pressure 110/65, respiratory rate 18, saturating 95% on room air. GENERAL: The patient was sitting at bedside, in no acute distress. Alert and oriented x4. HEENT: Neck is supple. No JVD or scleral icterus noted. Normocephalic, atraumatic. CARDIOVASCULAR: Regular rate and rhythm with no discernible murmurs, gallops, or rubs. RESPIRATORY: Clear to auscultation bilaterally with no discernible wheezes or rales. ABDOMEN: Hypoactive bowel sounds. Soft. Mild tenderness to palpation in the midepigastric region with no significant abdominal distention. EXTREMITIES: No cyanosis, clubbing, or edema. LABORATORY DATA: CBC with a white blood cell count of 9.8, hemoglobin 15.1, hematocrit 45.7, platelets 228. Chemistry with a sodium of 145, potassium 3.6, chloride 105, CO2 30, BUN 16, creatinine 0.95, glucose 134, AST 21, ALT 19, alkaline phosphatase 92, and total bilirubin 0.8, lipase 48. IMAGING DATA: CT of the abdomen and pelvis obtained on July 20 showed diffuse dilation of the intra and extrahepatic tree, which is unchanged from previous. However, I also noted gastric distention with fluid and high-density material consistent with ingested food. There was an abrupt transition of the duodenum at the 3rd portion consistent with SMA syndrome. Lap-Band was in place, but non inflated. EGD performed on July 31, 2017, showed extrinsic compression of the duodenum and gastric extension with extensive food debris along with mild gastritis. Subsequently, a Dobhoff was placed past the extrinsic compression of the duodenum using a hemoclip in order to secure it in place. ASSESSMENT AND PLAN: The patient is a 63-year-old female with past medical history of osteoarthritis, hypothyroidism, obesity status post Lap-Band procedure and superior mesenteric artery syndrome, presenting with nausea, vomiting, abdominal pain and imaging consistent with superior mesenteric artery syndrome. Superior mesenteric artery syndrome. The patient is presenting with increased nausea, vomiting, and mild lower abdominal pain after the ingestion of a meal yesterday. With this increased nausea and vomiting, it prompted her to seek healthcare assistance at [facility] where imaging was consistent with compression of the second/third portion of the duodenum by the superior mesenteric artery. Given her history of bariatric surgery and approximately 110-pound weight loss, the loss of the fat pad between the SMA and the duodenum is likely in a more acute angle of the SMA compressing the duodenum. At this point, it is unclear if there is any additional process going on to contribute to her increased nausea, vomiting, or obstruction in the duodenum. Differential could include polyp formation, inflammation/edema or a possible GI neoplasm. RECOMMENDATIONS: 1. We would continue the patient on n.p.o. status with NG tube placed to low intermittent wall suction. 2. We will plan for EGD later on today for evaluation of the duodenum and possible placement of a Dobhoff tube past the extrinsic compression in attempt to provide nutrition of the patient. 3. The patient may need tube feeds through the Dobhoff tube for the time being based on the degree of extrinsic compression seen during the upper endoscopy. 4. Further recommendations to follow upper endoscopy. We will continue to follow. Please call with any questions. Job ID: [id number]
[2018-07-20] MEDS ORDERED: Ondansetron HCl/PF 4 MG/2 ML Vial IVP PRN (23:31)
[2018-07-20] MEDS ORDERED: Promethazine HCl 25 MG/ML VIAL IM PRN (23:31)
[2018-07-20] MEDS ORDERED: Promethazine HCl 25 MG/ML VIAL SLOW IVP PRN (23:31)
[2018-07-20] MEDS ORDERED: HYDROmorphone 2 MG/ML VIAL SLOW IVP PRN (23:31)
[2018-07-20] MEDS ORDERED: PACU-Morphine 4MG/ML VIAL SLOW IVP PRN (23:31)
--- NOTE | 2018-07-21 02:19 | OP ---
DATE OF PROCEDURE: 07/20/2018 INDICATIONS FOR PROCEDURE: Possible intestinal obstruction/superior mesenteric artery syndrome. DESCRIPTION OF PROCEDURE: After the risks and benefits of the procedure were explained to the patient including risks of bleeding, infection, perforation, reactions to anesthesia, aspiration and/or pain, informed consent was obtained. The patient was then taken to the endoscopy suite where general anesthesia was administered via Anesthesia support. Once the patient was adequately intubated and sedated, the standard gastroscope was introduced into the mouth with intubation of the esophagus, stomach, and the proximal small intestine with the findings listed below. However, the compression was noted within the 3rd portion of the duodenum and was not able to be reached with the standard gastroscope. The gastroscope was then substituted for a colonoscope, and with a push enteroscopy technique, the colonoscope was able to be advanced past the obstruction using a Dobhoff tube with a suture tied to the end of the valve of tube, it was advanced successfully on 2 occasions past the obstruction, but on both occasions upon withdrawal of the colonoscope, it remove the Dobhoff tube as well. With the unsuccessful attempts at placement of the Dobhoff tube pass the extrinsic compression of the duodenum, the procedure was aborted with all equipment removed from the patient. The patient was then transferred to PACU in satisfactory condition. FINDINGS: 1. Esophagus: Normal-appearing mucosa was seen in the proximal, mid, and distal esophagus. A small hiatal hernia was seen in the distal esophagus without any evidence of erosions or breakdown. There was no evidence of erosions, ulcerations, mass, lesions, or active/recent bleeding seen in this region. 2. Stomach: Normal-appearing mucosa was seen in the gastric cardia, fundus, body, antrum, and incisura. There was no evidence of significant amount of retained gastric fluid or retained food debris. There was no evidence of erosions, ulcerations, mass, lesions, or active/recent bleeding. 3. Duodenum: Normal-appearing mucosa was seen in the duodenal bulb and second portion of the duodenum. Decompression was seen within the 3rd portion of the duodenum. It was exquisite in nature and noted to have normal intestinal mucosa both on the proximal and distal end of this obstruction. Initially, this obstruction was not able to be traversed with the standard gastroscope and was able to be traversed with severe difficulty with the colonoscope using push enteroscopy. A Dobhoff tube was attempted to be placed and affixed to the intestinal mucosa with a hemoclip x2, but was unsuccessful on both occasions as they are due to removal of the Dobhoff upon removal of the colonoscope (the Dobhoff would withdrawal with the colonoscope). Otherwise, there was no evidence of erosions, ulcerations, mass, lesions, or active/recent bleeding. IMPRESSION: 1. Extrinsic compression of the 3rd portion of the duodenum, consistent with superior mesenteric artery syndrome. 2. Small hiatal hernia. 3. Otherwise normal upper endoscopy with no evidence of retained gastric fluid or food debris. RECOMMENDATIONS: 1. We will replace the patient's NG tube with KUB to confirm positioning. 2. Would place the patient back to low intermittent wall suction with n.p.o. until the morning. 3. Tomorrow we would clamp the NG tube and start the patient on a clear liquid diet and assess for tolerance and advance as tolerated. 4. If the patient is able to tolerate a more liquid diet, we will consider discharge to home with followup in the GI Clinic and monitoring of the SMA syndrome. 5. Would recommend optimization of nutritional status with the intent to gain weight and restore the fat pad around the duodenum/superior mesenteric artery. We will continue to follow. Please call with any questions. Job ID: [id number]
--- NOTE | 2018-07-21 06:48 | RAD ---
FRONTAL VIEW ABDOMEN KUB: INDICATIONS: Nasogastric tube placement evaluation. FINDINGS: Enteric catheter is present with SidePort at the expected region of the gastric body, and the distal tip traversing to the central aspect of the mid left abdomen. A gastric band is present. The imaged lower lung zones are free from consolidation or significant effusion. A small volume of excreted contrast is seen at the urinary bladder. IMPRESSION: 1. Enteric catheter traverses to the central aspect of the mid abdomen, to the left of midline. 2. Nonspecific bowel gas pattern. POS: NWK
[2018-07-21] MEDS: Sodium Chloride 0.9% 1,000 ML IV SCH ×2 (08:18→17:55)
[2018-07-21] MEDS: Famotidine/PF 20 mg/2ml Vial SLOW IVP SCH ×2 (08:19→20:18)
[2018-07-21] MEDS: Thyroid 60 MG TAB PO SCH (08:30)
[2018-07-21 09:21] LABS: #Lymphocytes 1.9 thou/uL (1.20-3.40); #Monocytes 0.6 thou/uL (0.11-0.59); #Neutrophils 9.3 thou/uL (1.40-6.50); %Basophils 0.1 % (0.0-1.0); %Eosinophils 0.2 % (0.0-10.0); %Lymphocytes 15.8 % (21.0-51.0); %Monocytes 4.9 % (0.0-10.0); Hemoglobin 12.3 g/dL (12.0-16.0); Mean Corpuscular HGB CONC 33.5 g/dL (32.0-36.0); Mean Corpuscular Hemoglobin 30.5 pg (27.0-31.0); Mean Corpuscular Volume 91.1 fL (78.0-98.0); Mean Platelet Volume 9.6 fL (7.4-10.4); Platelet Count 176 thou/uL (130-400); RBC Distribution Width 13.4 % (11.5-14.5); Red Blood Cell (RBC) Count 4.02 mill/uL (4.20-5.40); White Blood Cell (WBC) Count 11.7 thou/uL (4.8-10.8)
[2018-07-21 09:40] LABS: Anion Gap 10 mmol/L (10-20); BUN (Urea Nitrogen) 13 mg/dL (9.8-20.1); Calc. Creatinine Clearance 78 mL/min (70-130); Calcium 8.9 mg/dL (7.8-10.44); Carbon Dioxide 28 mmol/L (23-31); Chloride 110 mmol/L (98-107); Estimated GFR-MDRD 66; Glucose 102 mg/dL (80-115); Potassium 3.5 mmol/L (3.5-5.1); Sodium 144 mmol/L (136-145)
--- NOTE | 2018-07-21 10:35 | CON ---
DATE OF CONSULTATION: CHIEF COMPLAINT: Vomiting. HISTORY OF PRESENT ILLNESS: This is a 63-year-old female, who reports having eating a large meal followed by nausea, vomiting, and abdominal pain. This is similar to an episode she had last year in July of 2017, where she had an SMA syndrome. This was successfully treated with NG decompression and placement of Dobhoff distal to the obstruction. An attempt was made last night to do this again. They were able to do an EGD. They did see external compression in the third portion of the duodenum. They were unsuccessful in placement of the Dobhoff. The patient now feels fine. She denies any pain. No nausea or vomiting. PAST MEDICAL HISTORY: Significant for history of SMA syndrome, osteoarthritis, hypothyroidism, and osteoporosis. PAST SURGICAL HISTORY: She had a lap band in 2007. She had bilateral total knee replacement, back surgery, hysterectomy, and laparoscopic cholecystectomy in 2014. MEDICATIONS: 1. Thyroid. 2. B12. 3. D. ALLERGIES: NO KNOWN DRUG ALLERGIES. FAMILY HISTORY: Lymphoma, prostate cancer, and hypertension. SOCIAL HISTORY: She is . Rare alcohol. No tobacco. PHYSICAL EXAMINATION: VITAL SIGNS: Temperature 98.2, pulse 79, and blood pressure 111/62. GENERAL: She is awake, alert, in no apparent distress. HEENT: She has an NG tube placed, the 380 mL came out last night. ABDOMEN: Soft, nontender, and nondistended. EXTREMITIES: Unremarkable. LABORATORY DATA: White count 9.8, H and H are 15 and 45, and platelet count 228. Electrolytes are fine. Glucose was a little bit elevated at 134. LFTs are normal. IMAGING DATA: CT scan showed dilated intra and extrahepatic ducts, distended stomach, abrupt change in the third portion of the duodenum. ASSESSMENT: Superior mesenteric artery syndrome. PLAN: I would wait a couple of days before trying to feed her. Recommend placement of a PICC line. Continued NG to suction. Start TPN. If unsuccessful, she may need a gastrojejunostomy. Job ID: [id number]
[2018-07-21] MEDS ORDERED: Multivitamins, Adult 10 ML, Multitrace-5 5 ML in D15W-AA 5% with Lytes 2,000 ML, Fat Em... IV SCH (14:00)
--- NOTE | 2018-07-21 15:50 | SPC ---
FUltrasound-guided left upper extremity PICC placement: 07/21/2018 HISTORY: 63-year-old female with SMA syndrome requiring TPN FINDINGS: Informed consent obtained prior to the procedure. Left antecubital fossa prepped and draped in normal sterile fashion. Skin overlying thebasilicvein anesthetized with 1% buffered lidocaine. With direct sonographic guidan ce, vascular access is obtained via the basilicvein and an 0.018in wire was advanced to the superior vena cava/right atrial junction. Intravascular length is calculated at 37 cm and of the PICC is cut a ccordingly. Needle is removed and replaced with a peel-away sheath. The PICC was advanced over the wire. Wire and peel-away sheath were removed. The tip of the catheter overlies the superior vena cava/right atrial junction. The port flushes well and the catheter is read y for use. Exposure data: 0.9 minutes of fluoroscopic time 5801 mGy per centimeter squared IMPRESSION: Successful ultrasound guided placement of a ultrasound guided fluoroscopically guided sumit ble-lumen leftupper extremity PICC.
[2018-07-21 17:03] LABS: INR-International Normal Ratio 1.1; PTT 27.6 SEC (22.9-36.1); Prothrombin Time 14.2 SEC (12.0-14.7)
[2018-07-21 17:19] LABS: ALT (SGPT) 11 U/L (8-55); AST (SGOT) 18 U/L (5-34); Albumin 3.4 g/dL (3.4-4.8); Alkaline Phosphatase 64 U/L (40-150); Anion Gap 9 mmol/L (10-20); BUN (Urea Nitrogen) 11 mg/dL (9.8-20.1); Bilirubin, Total 0.7 mg/dL (0.2-1.2); Calc. Creatinine Clearance 91 mL/min (70-130); Carbon Dioxide 25 mmol/L (23-31); Cardiac Risk 2.5 (Less than 4.5); Chloride 114 mmol/L (98-107); Cholesterol 117 mg/dl (< 200 Desired); Estimated GFR-MDRD 79; Globulin 2.5 g/dL (2.4-3.5); Glucose 88 mg/dL (80-115); HDL Cholesterol 47 mg/dL (>60 Neg Risk); LDL Cholesterol, Calculated 55 mg/dL; Magnesium 1.7 mg/dL (1.6-2.6); Protein, Total 5.9 g/dL (6.0-8.3); Sodium 145 mmol/L (136-145); Triglycerides 77 mg/dL (Less than 150)
--- NOTE | 2018-07-21 18:01 | PRG ---
DATE OF SERVICE: 07/21/2018 REASON FOR CONSULTATION: Superior mesenteric artery syndrome. SUBJECTIVE: The patient states that she was doing well this morning other than having a moderate sore throat after the procedure yesterday evening. She has not had any further episodes of nausea, vomiting, or abdominal pain since replacement of the NG tube in place to low intermittent wall suction. She has been able to ambulate around the negro successfully without any additional problems, but has noted that whenever she is hooked back up to suction, she has had a significant amount of fluid obtained back. She was seen earlier by the General Surgery Service with recommendations to place the patient on a PICC line and administer TPN in an attempt to restore the fat pad present between the superior mesenteric artery and the duodenum itself. Currently, she denies any nausea, vomiting, fevers, chills, abdominal pain, or GI bleeding. OBJECTIVE: VITAL SIGNS: Temperature 98.4, pulse 57, blood pressure 133/85, respiratory rate 16, saturating 96% on room air. GENERAL: The patient is lying in bed, in no acute distress. Alert and oriented x4. CARDIOVASCULAR: Regular rate and rhythm. RESPIRATORY: Clear to auscultation bilaterally. ABDOMEN: Normoactive bowel sounds, soft, nontender, nondistended. EXTREMITIES: No cyanosis, clubbing, or edema. LABORATORY DATA: CBC with a white blood cell count of 11.7, hemoglobin 12.3, hematocrit 36.6, platelets 176. Chemistry with a sodium of 144, potassium 3.5, chloride 110, CO2 28, BUN is 13, creatinine 0.86, glucose 102. IMAGING DATA: The patient underwent upper endoscopy on July 20, 2018, which showed normal mucosa within the esophagus, stomach, and in the duodenum; however within the third portion of the duodenum there was extrinsic compression with normal-appearing mucosa within this region as well. Attempts to traverse the compression were successful with normal-appearing mucosa on the distal end of this compression. However, attempts to successfully place a Dobhoff tube were unsuccessful with replacement of the NG tube at the completion of the procedure. ASSESSMENT AND PLAN: The patient is a 63-year-old female with past medical history of osteoarthritis, hypothyroidism, obesity, status post lap band procedure and superior mesenteric artery syndrome, presenting with nausea, vomiting, and abdominal pain with endoscopy consistent with superior mesenteric artery syndrome. 1. Superior mesenteric artery syndrome. The patient initially presented with increased nausea, vomiting, and abdominal pain after the ingestion of a meal 24 hours prior to admission. With this increased nausea and vomiting, it prompted her to seek healthcare assistance, where on imaging, she was noted to have compression of the second/third portion of the duodenum consistent with superior mesenteric artery syndrome. She ultimately underwent upper endoscopy on July 20, 2018, which confirmed this diagnosis and did not reveal any additional abnormalities upon intraluminal evaluation. Attempts at placing a Dobhoff tube to provide additional nutrition were unsuccessful. At this time, the patient most likely has superior mesenteric artery syndrome due to the loss of the fat pad between the superior mesenteric artery and the duodenum resulting in a more acute angle between the superior mesenteric artery and the duodenum and essentially providing extrinsic compression and even intermittent obstruction. At this time nutritional status and jewish of the fat pad are mainstay of treatment primarily achieved through weight gain. RECOMMENDATIONS: 1. One would continue the patient on n.p.o. status with NG tube placed to low intermittent wall suction for now. 2. We would consider advancing the patient's diet to either clear or full liquid as part of an oral trial within the next 48 to 72 hours. 3. Agree with General Surgery Service for placement of PICC line and initiation of TPN therapy. 4. We will continue to follow. Please call with any questions. Job ID: [id number]
--- NOTE | 2018-07-21 19:17 | PDOC.PN ---
- Subjective Encounter Start Date: 07/21/18 Encounter Start Time: 09:20 Pt seen for followup re: superior mesenteric artery syndrome. c/o abdo discomfort. No fevers. - Objective Resuscitation Status - Order Detail: 07/20/18 12:21 Resuscitation Status Routine Resuscitation Status: FULL: Full Resuscitation MAR Reviewed: Yes Vital Signs & Weight: Vital Signs (12 hours) Temp Pulse Resp BP BP Pulse Ox 07/21/18 16:00 98.4 F 57 L 16 133/85 96 07/21/18 12:00 98.1 F 66 14 121/77 99 07/21/18 08:00 98.3 F 62 16 109/66 95 Weight Admit Weight 164 lb 14.492 oz Weight 164 lb 14.492 oz I&O: 07/20/18 07/21/18 07/22/18 06:59 06:59 06:59 Intake Total 800 1200 Output Total 380 150 Balance 420 1050 Result Diagrams: 07/21/18 08:44 07/21/18 16:41 Additional Labs: Labs reviewed by me Phys Exam - Physical Examination Obese HEENT: moist MMs Neck: supple Respiratory: clear to auscultation bilateral Cardiovascular: RRR Mild diffuse abdo tenderness, no rigidity Neurological: moves all 4 limbs Psychiatric: normal affect Dx/Plan (1) SMAS (superior mesenteric artery syndrome) Code(s): K55.1 - CHRONIC VASCULAR DISORDERS OF INTESTINE Status: Acute Comment: Plan for PICC line, TPN. Continue IV hydration. (2) Hypokalemia Code(s): E87.6 - HYPOKALEMIA Status: Acute Comment: Pt being started on TPN (3) Osteoarthritis Code(s): M19.90 - UNSPECIFIED OSTEOARTHRITIS, UNSPECIFIED SITE Status: Chronic Comment: stable (4) Adult hypothyroidism Code(s): E03.9 - HYPOTHYROIDISM, UNSPECIFIED Status: Chronic Comment: hold thyroid replacement for now - Plan * . Review of Systems - Review of Systems Cardiovascular: negative: chest pain, palpitations, orthopnea, paroxysmal nocturnal dyspnea, edema, light headedness Gastrointestinal: Nausea, Abdominal Pain. negative: Vomiting, Diarrhea, Constipation, Melena, Hematochezia - Medications/Allergies Allergies/Adverse Reactions: Allergies Allergy/AdvReac Type Severity Reaction Status Date / Time No Known Allergies Allergy Verified 03/10/15 23:17 Medications: Current Medications Acetaminophen (Tylenol) 650 mg [place] Q4H PRN PRN Reason: Headache/Fever/Mild Pain (1-3) Famotidine (Pepcid) 20 mg SLOW IVP Q12HR [facility] Last Admin: 07/21/18 08:19 Dose: 20 mg Multivitamins 10 ml/ Chromium/Copper/Manganese/Seleni/Zn 5 ml/ Amino Acids/ Electrolytes/Fat Emulsion Intravenous 2,265 mls @ 94.375 mls/hr IV 2200 MAL Sodium Chloride (Normal Saline 0.9%) 1,000 mls @ 125 mls/hr IV .Q8H [facility] Last Admin: 07/21/18 17:55 Dose: 1,000 mls Morphine Sulfate (Morphine) 4 mg SLOW IVP Q4H PRN PRN Reason: Moderate to Severe Pain (6-10) Ondansetron HCl (Zofran) 4 mg IVP Q6H PRN PRN Reason: Nausea/Vomiting Sodium Chloride (Flush - Normal Saline) 10 ml IVF Q12HR [facility] Last Admin: 07/21/18 08:31 Dose: Not Given Sodium Chloride (Flush - Normal Saline) 10 ml IVF PRN PRN PRN Reason: Saline Flush Thyroid ([place] Thyroid) 120 mg PO DAILY [facility] Last Admin: 07/21/18 08:30 Dose: Not Given Zolpidem Tartrate (Ambien) 5 mg PO HSPRN PRN PRN Reason: Insomnia
[2018-07-21] MEDS: Multivitamins, Adult 10 ML, Multitrace-5 5 ML in D15W-AA 5% with Lytes 2,000 ML, Fat Em... IV SCH (22:36)
[2018-07-22] MEDS: Sodium Chloride 0.9% 1,000 ML IV SCH ×4 (02:56→23:46)
[2018-07-22 07:11] LABS: ALT (SGPT) 12 U/L (8-55); AST (SGOT) 20 U/L (5-34); Albumin 3.7 g/dL (3.4-4.8); Alkaline Phosphatase 67 U/L (40-150); Anion Gap 8 mmol/L (10-20); BUN (Urea Nitrogen) 13 mg/dL (9.8-20.1); Bilirubin, Total 0.7 mg/dL (0.2-1.2); Calc. Creatinine Clearance 84 mL/min (70-130); Carbon Dioxide 29 mmol/L (23-31); Cardiac Risk 2.6 (Less than 4.5); Chloride 112 mmol/L (98-107); Cholesterol 125 mg/dl (< 200 Desired); Estimated GFR-MDRD 72; Globulin 2.8 g/dL (2.4-3.5); Glucose 121 mg/dL (80-115); HDL Cholesterol 48 mg/dL (>60 Neg Risk); LDL Cholesterol, Calculated 58 mg/dL; Magnesium 2.1 mg/dL (1.6-2.6); Potassium 3.4 mmol/L (3.5-5.1); Protein, Total 6.5 g/dL (6.0-8.3); Sodium 146 mmol/L (136-145); Triglycerides 96 mg/dL (Less than 150)
[2018-07-22 07:20] LABS: Phosphorus 1.9 mg/dL (2.3-4.7)
--- NOTE | 2018-07-22 08:19 | PRG ---
DATE OF SERVICE: 07/22/2018 SUBJECTIVE: The patient is reporting that she feels so much better since the TPN was started. She has more energy. She denies any pain, but she has not passed any flatus. OBJECTIVE: GENERAL: She is awake, alert, does not appear to be in any distress. ABDOMEN: Soft, nondistended, and nontender. VITAL SIGNS: Her temperature is 98.1, pulse 50, and blood pressure 116/60. Her NG output has been 150 mL, but that is quite a bit coming out right now. LABORATORY DATA: Her white count is 11.7, hemoglobin and hematocrit 12 and 36, and platelet count 176. Her phosphorus has dropped to 1.9, probably from feeding and her potassium is 3.4. ASSESSMENT: Hypophosphatemia due to reef eating as well as a third portion duodenal obstruction. PLAN: Continue NG suction, TPN. Will add additional potassium phosphate. Job ID: [id number]
[2018-07-22] MEDS ORDERED: Potassium Phosphate 30 MMOL in Sodium Chloride 0.9% 500 ML IVPB SCH (09:00)
[2018-07-22] MEDS: Famotidine/PF 20 mg/2ml Vial SLOW IVP SCH ×2 (09:34→20:41)
[2018-07-22] MEDS: Thyroid 60 MG TAB PO SCH (09:35)
[2018-07-22] MEDS ORDERED: Nitroglycerin 0.4 MG TAB (25 Tab Bottle) PO PRN (12:33)
[2018-07-22 13:46] LABS: Troponin I 0.013 ng/mL (< 0.028)
--- NOTE | 2018-07-22 18:59 | PDOC.PN ---
- Subjective Encounter Start Date: 07/22/18 Encounter Start Time: 08:40 Pt seen for followup re: SMA syndrome. Feels better today. - Objective Resuscitation Status - Order Detail: 07/20/18 12:21 Resuscitation Status Routine Resuscitation Status: FULL: Full Resuscitation MAR Reviewed: Yes Vital Signs & Weight: Vital Signs (12 hours) Temp Pulse Resp BP Pulse Ox 07/22/18 15:45 98.5 F 53 L 18 140/71 96 07/22/18 12:10 98.2 F 53 L 16 129/73 97 07/22/18 08:00 98.3 F 53 L 16 118/74 96 Weight Admit Weight 164 lb 14.492 oz Weight 164 lb 14.492 oz I&O: 07/21/18 07/22/18 07/23/18 06:59 06:59 06:59 Intake Total 800 1200 Output Total 380 150 Balance 420 1050 Result Diagrams: 07/21/18 08:44 07/22/18 06:30 Additional Labs: Accuchecks 07/22/18 07/22/18 07/22/18 15:51 11:17 05:43 POC Glucose 106 124 H 119 H 07/22/18 00:13 POC Glucose 110 labs reviewed by me Phys Exam - Physical Examination Obese HEENT: moist MMs Neck: supple Respiratory: clear to auscultation bilateral Cardiovascular: RRR Gastrointestinal: soft Neurological: moves all 4 limbs Psychiatric: normal affect Dx/Plan (1) SMAS (superior mesenteric artery syndrome) Code(s): K55.1 - CHRONIC VASCULAR DISORDERS OF INTESTINE Status: Acute Comment: Pt is on TPN, clinically better (2) Hypokalemia Code(s): E87.6 - HYPOKALEMIA Status: Acute Comment: Improved (3) Osteoarthritis Code(s): M19.90 - UNSPECIFIED OSTEOARTHRITIS, UNSPECIFIED SITE Status: Chronic Comment: stable (4) Adult hypothyroidism Code(s): E03.9 - HYPOTHYROIDISM, UNSPECIFIED Status: Chronic Comment: start IV synthroid if pt is still NPO in 2-3 days - Plan * . Review of Systems - Review of Systems Cardiovascular: other. negative: chest pain, palpitations, orthopnea, paroxysmal nocturnal dyspnea, edema, light headedness Gastrointestinal: Nausea. negative: Vomiting, Abdominal Pain, Diarrhea, Constipation, Melena, Hematochezia - Medications/Allergies Allergies/Adverse Reactions: Allergies Allergy/AdvReac Type Severity Reaction Status Date / Time No Known Allergies Allergy Verified 03/10/15 23:17 Medications: Current Medications Acetaminophen (Tylenol) 650 mg [place] Q4H PRN PRN Reason: Headache/Fever/Mild Pain (1-3) Famotidine (Pepcid) 20 mg SLOW IVP Q12HR [facility] Last Admin: 07/22/18 09:34 Dose: 20 mg Multivitamins 10 ml/ Chromium/Copper/Manganese/Seleni/Zn 5 ml/ Amino Acids/ Electrolytes/Fat Emulsion Intravenous 2,265 mls @ 94.375 mls/hr IV 2200 [facility] Last Admin: 07/21/18 22:36 Dose: 2,265 mls Sodium Chloride (Normal Saline 0.9%) 1,000 mls @ 125 mls/hr IV .Q8H [facility] Last Admin: 07/22/18 15:32 Dose: Not Given Morphine Sulfate (Morphine) 4 mg SLOW IVP Q4H PRN PRN Reason: Moderate to Severe Pain (6-10) Nitroglycerin (Nitrostat) 0.4 mg PO Q5MIN PRN PRN Reason: Chest Pain Ondansetron HCl (Zofran) 4 mg IVP Q6H PRN PRN Reason: Nausea/Vomiting Sodium Chloride (Flush - Normal Saline) 10 ml IVF Q12HR [facility] Last Admin: 07/22/18 09:35 Dose: Not Given Sodium Chloride (Flush - Normal Saline) 10 ml IVF PRN PRN PRN Reason: Saline Flush Thyroid ([place] Thyroid) 120 mg PO DAILY [facility] Last Admin: 07/22/18 09:35 Dose: Not Given Zolpidem Tartrate (Ambien) 5 mg PO HSPRN PRN PRN Reason: Insomnia
[2018-07-22] MEDS: Multivitamins, Adult 10 ML, Multitrace-5 5 ML in D15W-AA 5% with Lytes 2,000 ML, Fat Em... IV SCH (22:58)
[2018-07-23 07:05] LABS: #Basophils 0.1 thou/uL (0.0-0.2); #Eosinphils 0.3 thou/uL (0.0-0.7); #Lymphocytes 3.1 thou/uL (1.20-3.40); #Monocytes 0.6 thou/uL (0.11-0.59); #Neutrophils 4.7 thou/uL (1.40-6.50); %Basophils 0.7 % (0.0-1.0); %Eosinophils 3.5 % (0.0-10.0); %Lymphocytes 35.2 % (21.0-51.0); %Monocytes 7.2 % (0.0-10.0); %Neutrophils 53.4 % (42.0-75.0); Hemoglobin 12.9 g/dL (12.0-16.0); Mean Corpuscular HGB CONC 33.3 g/dL (32.0-36.0); Mean Corpuscular Hemoglobin 30.3 pg (27.0-31.0); Mean Corpuscular Volume 91.1 fL (78.0-98.0); Mean Platelet Volume 9.5 fL (7.4-10.4); Platelet Count 153 thou/uL (130-400); RBC Distribution Width 13.1 % (11.5-14.5); Red Blood Cell (RBC) Count 4.27 mill/uL (4.20-5.40); White Blood Cell (WBC) Count 8.7 thou/uL (4.8-10.8)
[2018-07-23 07:30] LABS: ALT (SGPT) 22 U/L (8-55); AST (SGOT) 29 U/L (5-34); Albumin 3.7 g/dL (3.4-4.8); Alkaline Phosphatase 67 U/L (40-150); Anion Gap 11 mmol/L (10-20); BUN (Urea Nitrogen) 15 mg/dL (9.8-20.1); Bilirubin, Total 0.6 mg/dL (0.2-1.2); Calc. Creatinine Clearance 93 mL/min (70-130); Calcium 9.1 mg/dL (7.8-10.44); Carbon Dioxide 27 mmol/L (23-31); Cardiac Risk 2.6 (Less than 4.5); Chloride 109 mmol/L (98-107); Cholesterol 112 mg/dl (< 200 Desired); Estimated GFR-MDRD 82; Globulin 2.8 g/dL (2.4-3.5); Glucose 81 mg/dL (80-115); HDL Cholesterol 43 mg/dL (>60 Neg Risk); LDL Cholesterol, Calculated 52 mg/dL; Potassium 3.8 mmol/L (3.5-5.1); Protein, Total 6.5 g/dL (6.0-8.3); Sodium 143 mmol/L (136-145); Triglycerides 86 mg/dL (Less than 150)
--- NOTE | 2018-07-23 08:59 | PRG ---
DATE OF SERVICE: 07/22/2018 This late entry should have been for July 22 at approximately 1800 hours. REASON FOR CONSULTATION: Superior mesenteric artery syndrome. SUBJECTIVE: The patient underwent PICC line placement and was subsequently placed on TPN today with improvement in her clinical status. She states that she no longer feels as hungry or as thirsty when compared to previous. Otherwise, she states that she has been doing well with the placement of the NG tube for decompression of the upper GI tract. She has been able to ambulate throughout the negro without difficulty. Currently, denies any nausea, vomiting, fevers, chills, abdominal pain, or GI bleeding. OBJECTIVE: VITAL SIGNS: Temperature 98.5, pulse 53, blood pressure 140/71, respiratory rate 18, saturating 96% on room air. GENERAL: The patient is lying in bed, in no acute distress. Alert and oriented x4. HEENT: NG tube seen extruding from the right naris. CARDIOVASCULAR: Regular rate and rhythm. RESPIRATORY: Clear to auscultation bilaterally. ABDOMEN: Normoactive bowel sounds. Soft, nontender, nondistended. EXTREMITIES: No cyanosis, clubbing, or edema. LABORATORY DATA: No current CBC is available for review. Chemistry with a sodium of 146, potassium 3.4, chloride 112, CO2 of 29, BUN 13, creatinine 0.8, glucose 121. AST 20, ALT 12, alkaline phosphatase 67, total bilirubin 0.7. IMAGING DATA: No current GI imaging is available for review. ASSESSMENT AND PLAN: The patient is a 63-year-old female with past medical history of osteoarthritis, hypothyroidism, obesity, status post lap band procedure, and superior mesenteric artery syndrome, presenting with nausea, vomiting, abdominal pain with imaging consistent with superior mesenteric artery syndrome. SMA syndrome The patient initially presented with increased nausea, vomiting, and abdominal pain after the ingestion of a larger meal 24 hours prior to admission. Upon seeking healthcare assistance, she was noted to have CT imaging consistent with compression of the second/third portion of the duodenum consistent with superior mesenteric artery syndrome. She underwent upper endoscopy on July 20, 2018, which confirmed this diagnosis and did not reveal any additional abnormalities upon intraluminal evaluation. Attempts at placing a Dobhoff tube to provide additional nutritional support were unsuccessful. Subsequently, the patient was placed on TPN via PICC line placement and has been doing well clinically since that time. Given the degradation of the fat pad between the superior mesenteric artery and duodenum, it is the most likely etiology for her current clinical situation with nutritional support being the most important thing at this point. RECOMMENDATIONS: 1. We will continue the patient on n.p.o. status with NG tube placed to low intermittent wall suction; however, after 3 to 4 days of TPN, we will consider either clamping the tube and an oral feeding trial or small bowel follow through to evaluate for patency of the third portion of the duodenum. 2. Continue with TPN therapy. We will sign off at this time. Please call with any additional questions. Job ID: [id number] [facility]
[2018-07-23] MEDS: Sodium Chloride 0.9% 1,000 ML IV SCH ×2 (10:38→20:22)
[2018-07-23] MEDS: Famotidine/PF 20 mg/2ml Vial SLOW IVP SCH ×2 (10:39→21:55)
[2018-07-23] MEDS: Thyroid 60 MG TAB PO SCH (10:45)
--- NOTE | 2018-07-23 13:12 | RAD ---
FSMALL BOWEL SERIES: HISTORY: Duodenal obstruction FINDINGS: The cco film demonstrates a nasogastric tube in the stomach. There are postoperative changes of cho lecystectomy, gastric banding surgery and posterior spinal fusion in the lower lumbar spine. Serial images were obtained after administration of contrast via nasogastric tube. There is unobstructed flow of contrast through the loops of small bowel into the colon by 30 minutes. No abnormal loop dilatation or separation is seen. IMPRESSION: No evidence of small bowel obstruction.
[2018-07-23] MEDS ORDERED: MD-Gastroview 120 ML BOT ONE (15:22)
[2018-07-23] MEDS ORDERED: Chloraseptic Spray 180 ml Bottle PO PRN (16:47)
--- NOTE | 2018-07-23 17:44 | PDOC.PN ---
- Subjective Encounter Start Date: 07/23/18 Encounter Start Time: 17:43 Pt seen for followup re: SMA syndrome. Feels better. No abdo pain, no nausea. - Objective Resuscitation Status - Order Detail: 07/20/18 12:21 Resuscitation Status Routine Resuscitation Status: FULL: Full Resuscitation MAR Reviewed: Yes Vital Signs & Weight: Vital Signs (12 hours) Temp Pulse Resp BP BP Pulse Ox 07/23/18 15:00 98.7 F 48 L 16 134/71 98 07/23/18 13:07 98.5 F 56 L 16 160/77 H 98 07/23/18 13:00 98.5 F 56 L 16 160/77 H 98 07/23/18 09:00 98.1 F 52 L 18 137/83 98 Weight Admit Weight 164 lb 14.492 oz Weight 164 lb 14.492 oz I&O: 07/22/18 07/23/18 07/24/18 06:59 06:59 06:59 Intake Total 1200 4212 Output Total 150 1500 Balance 1050 2712 Result Diagrams: 07/23/18 06:50 07/23/18 06:50 Additional Labs: Accuchecks 07/23/18 07/23/18 07/22/18 11:30 04:57 23:52 POC Glucose 102 107 109 Labs reviewed by me Phys Exam - Physical Examination Constitutional: NAD HEENT: moist MMs Neck: supple Respiratory: clear to auscultation bilateral Cardiovascular: RRR Gastrointestinal: soft Neurological: moves all 4 limbs Psychiatric: normal affect Dx/Plan (1) SMAS (superior mesenteric artery syndrome) Code(s): K55.1 - CHRONIC VASCULAR DISORDERS OF INTESTINE Status: Acute Comment: Pt clinically improved significantly, still on TPN, for ice chips (2) Osteoarthritis Code(s): M19.90 - UNSPECIFIED OSTEOARTHRITIS, UNSPECIFIED SITE Status: Chronic Comment: stable (3) Adult hypothyroidism Code(s): E03.9 - HYPOTHYROIDISM, UNSPECIFIED Status: Chronic Comment: resume synthroid when pt able to take oral medications (4) Hypokalemia Code(s): E87.6 - HYPOKALEMIA Status: Resolved - Plan * . Review of Systems - Review of Systems Gastrointestinal: negative: Nausea, Vomiting, Abdominal Pain, Diarrhea, Constipation, Melena, Hematochezia Genitourinary: negative: Dysuria, Frequency, Incontinence, Hematuria, Retention - Medications/Allergies Allergies/Adverse Reactions: Allergies Allergy/AdvReac Type Severity Reaction Status Date / Time No Known Allergies Allergy Verified 03/10/15 23:17 Medications: Current Medications Acetaminophen (Tylenol) 650 mg [place] Q4H PRN PRN Reason: Headache/Fever/Mild Pain (1-3) Famotidine (Pepcid) 20 mg SLOW IVP Q12HR [facility] Last Admin: 07/23/18 10:39 Dose: 20 mg Multivitamins 10 ml/ Chromium/Copper/Manganese/Seleni/Zn 5 ml/ Amino Acids/ Electrolytes/Fat Emulsion Intravenous 2,265 mls @ 94.375 mls/hr IV 2200 [facility] Last Admin: 07/22/18 22:58 Dose: 2,265 mls Sodium Chloride (Normal Saline 0.9%) 1,000 mls @ 125 mls/hr IV .Q8H [facility] Last Admin: 07/23/18 10:38 Dose: Not Given Morphine Sulfate (Morphine) 4 mg SLOW IVP Q4H PRN PRN Reason: Moderate to Severe Pain (6-10) Nitroglycerin (Nitrostat) 0.4 mg PO Q5MIN PRN PRN Reason: Chest Pain Ondansetron HCl (Zofran) 4 mg IVP Q6H PRN PRN Reason: Nausea/Vomiting Phenol (Chloraseptic [place] 180 Ml Bot) 0 ml PO Q8HR PRN PRN Reason: Sore Throat Sodium Chloride (Flush - Normal Saline) 10 ml IVF Q12HR [facility] Last Admin: 07/23/18 10:39 Dose: 10 ml Sodium Chloride (Flush - Normal Saline) 10 ml IVF PRN PRN PRN Reason: Saline Flush Thyroid ([place] Thyroid) 120 mg PO DAILY [facility] Last Admin: 07/23/18 10:45 Dose: Not Given Zolpidem Tartrate (Ambien) 5 mg PO HSPRN PRN PRN Reason: Insomnia
[2018-07-23] MEDS: Multivitamins, Adult 10 ML, Multitrace-5 5 ML in D15W-AA 5% with Lytes 2,000 ML, Fat Em... IV SCH (22:27)
[2018-07-24] MEDS: Sodium Chloride 0.9% 1,000 ML IV SCH ×4 (02:01→21:40)
--- NOTE | 2018-07-24 07:11 | PRG ---
DATE OF SERVICE: 07/24/2018 SUBJECTIVE: She has tolerated being off NG suction overnight. She denies any nausea. She has had multiple bowel movements. She has tolerated ice chips. PHYSICAL EXAMINATION: VITAL SIGNS: Her temperature is 98.6, pulse 54, and blood pressure 120/81. ABDOMEN: Soft, nontender, and nondistended. Good bowel sounds. A small-bowel follow-through showed no obstruction. ASSESSMENT: Superior mesenteric artery syndrome, improving. PLAN: Clear liquid diet. If tolerated, we will wean off TPN. Advance to full liquids. She will need to be on full liquids for a week, then soft diet for a week, then after 2 weeks, she can eat regular food. Job ID: [id number]
[2018-07-24 08:15] LABS: #Basophils 0.1 thou/uL (0.0-0.2); #Eosinphils 0.4 thou/uL (0.0-0.7); #Lymphocytes 2.4 thou/uL (1.20-3.40); #Monocytes 0.5 thou/uL (0.11-0.59); #Neutrophils 4.8 thou/uL (1.40-6.50); %Basophils 0.9 % (0.0-1.0); %Eosinophils 5.2 % (0.0-10.0); %Lymphocytes 29.1 % (21.0-51.0); %Monocytes 6.5 % (0.0-10.0); %Neutrophils 58.4 % (42.0-75.0); Hemoglobin 13.2 g/dL (12.0-16.0); Mean Corpuscular HGB CONC 33.7 g/dL (32.0-36.0); Mean Corpuscular Hemoglobin 29.8 pg (27.0-31.0); Mean Corpuscular Volume 88.3 fL (78.0-98.0); Mean Platelet Volume 9.1 fL (7.4-10.4); Platelet Count 178 thou/uL (130-400); Red Blood Cell (RBC) Count 4.43 mill/uL (4.20-5.40); White Blood Cell (WBC) Count 8.2 thou/uL (4.8-10.8)
[2018-07-24 08:40] LABS: ALT (SGPT) 50 U/L (8-55); AST (SGOT) 43 U/L (5-34); Albumin 3.8 g/dL (3.4-4.8); Alkaline Phosphatase 67 U/L (40-150); Anion Gap 11 mmol/L (10-20); BUN (Urea Nitrogen) 18 mg/dL (9.8-20.1); Bilirubin, Total 0.8 mg/dL (0.2-1.2); Calc. Creatinine Clearance 92 mL/min (70-130); Calcium 9.5 mg/dL (7.8-10.44); Carbon Dioxide 26 mmol/L (23-31); Cardiac Risk 2.5 (Less than 4.5); Chloride 108 mmol/L (98-107); Cholesterol 103 mg/dl (< 200 Desired); Estimated GFR-MDRD 80; Globulin 2.9 g/dL (2.4-3.5); Glucose 76 mg/dL (80-115); HDL Cholesterol 42 mg/dL (>60 Neg Risk); LDL Cholesterol, Calculated 44 mg/dL; Phosphorus 3.3 mg/dL (2.3-4.7); Potassium 4.1 mmol/L (3.5-5.1); Protein, Total 6.7 g/dL (6.0-8.3); Sodium 141 mmol/L (136-145); Triglycerides 87 mg/dL (Less than 150)
[2018-07-24] MEDS: Famotidine/PF 20 mg/2ml Vial SLOW IVP SCH ×2 (08:56→21:38)
[2018-07-24] MEDS: Thyroid 60 MG TAB PO SCH (09:01)
--- NOTE | 2018-07-24 17:54 | PDOC.PN ---
- Subjective Encounter Start Date: 07/24/18 Encounter Start Time: 08:00 Pt seen for followup re: superior mesenteric artery syndrome. Feels much better. - Objective Resuscitation Status - Order Detail: 07/20/18 12:21 Resuscitation Status Routine Resuscitation Status: FULL: Full Resuscitation MAR Reviewed: Yes Vital Signs & Weight: Vital Signs (12 hours) Temp Pulse Resp BP BP Pulse Ox 07/24/18 15:59 98.0 F 50 L 16 119/68 98 07/24/18 13:00 98.2 F 56 L 14 110/76 98 07/24/18 09:00 98.1 F 56 L 14 125/75 100 07/24/18 08:55 100 Weight Admit Weight 164 lb 14.492 oz Weight 164 lb 14.492 oz I&O: 07/23/18 07/24/18 07/25/18 06:59 06:59 06:59 Intake Total 4212 1580 Output Total 1500 Balance 2712 1580 Result Diagrams: 07/24/18 07:55 07/24/18 07:55 Additional Labs: Accuchecks 07/24/18 07/24/18 07/24/18 15:57 11:44 06:02 POC Glucose 207 H 98 111 H 07/24/18 07/23/18 00:19 18:07 POC Glucose 103 90 labs reviewed by me Phys Exam - Physical Examination Constitutional: NAD HEENT: moist MMs Neck: supple Respiratory: clear to auscultation bilateral Cardiovascular: RRR Gastrointestinal: soft Neurological: moves all 4 limbs Psychiatric: normal affect Dx/Plan (1) SMAS (superior mesenteric artery syndrome) Code(s): K55.1 - CHRONIC VASCULAR DISORDERS OF INTESTINE Status: Acute Comment: Significantly improved; tolerating liquids, being weaned off of TPN (2) Osteoarthritis Code(s): M19.90 - UNSPECIFIED OSTEOARTHRITIS, UNSPECIFIED SITE Status: Chronic Comment: stable (3) Adult hypothyroidism Code(s): E03.9 - HYPOTHYROIDISM, UNSPECIFIED Status: Chronic Comment: will likely be able to take thyroid replacement from tomorrow (4) Hypokalemia Code(s): E87.6 - HYPOKALEMIA Status: Resolved - Plan out of bed/ambulate * . Review of Systems - Review of Systems Cardiovascular: negative: chest pain, palpitations, orthopnea, paroxysmal nocturnal dyspnea, edema, light headedness Gastrointestinal: negative: Nausea, Vomiting, Abdominal Pain, Diarrhea, Constipation, Melena, Hematochezia - Medications/Allergies Allergies/Adverse Reactions: Allergies Allergy/AdvReac Type Severity Reaction Status Date / Time No Known Allergies Allergy Verified 03/10/15 23:17 Medications: Current Medications Acetaminophen (Tylenol) 650 mg [place] Q4H PRN PRN Reason: Headache/Fever/Mild Pain (1-3) Famotidine (Pepcid) 20 mg SLOW IVP Q12HR [facility] Last Admin: 07/24/18 08:56 Dose: 20 mg Multivitamins 10 ml/ Chromium/Copper/Manganese/Seleni/Zn 5 ml/ Amino Acids/ Electrolytes/Fat Emulsion Intravenous 2,265 mls @ 94.375 mls/hr IV 2200 [facility] Last Admin: 07/23/18 22:27 Dose: 2,265 mls Sodium Chloride (Normal Saline 0.9%) 1,000 mls @ 125 mls/hr IV .Q8H [facility] Last Admin: 07/24/18 08:55 Dose: 1,000 mls Morphine Sulfate (Morphine) 4 mg SLOW IVP Q4H PRN PRN Reason: Moderate to Severe Pain (6-10) Nitroglycerin (Nitrostat) 0.4 mg PO Q5MIN PRN PRN Reason: Chest Pain Ondansetron HCl (Zofran) 4 mg IVP Q6H PRN PRN Reason: Nausea/Vomiting Phenol (Chloraseptic [place] 180 Ml Bot) 0 ml PO Q8HR PRN PRN Reason: Sore Throat Sodium Chloride (Flush - Normal Saline) 10 ml IVF Q12HR [facility] Last Admin: 07/24/18 09:00 Dose: 10 ml Sodium Chloride (Flush - Normal Saline) 10 ml IVF PRN PRN PRN Reason: Saline Flush Thyroid ([place] Thyroid) 120 mg PO DAILY [facility] Last Admin: 07/24/18 09:01 Dose: Not Given Zolpidem Tartrate (Ambien) 5 mg PO HSPRN PRN PRN Reason: Insomnia
[2018-07-25] MEDS: Sodium Chloride 0.9% 1,000 ML IV SCH (05:50)
[2018-07-25 06:53] LABS: #Basophils 0.1 thou/uL (0.0-0.2); #Eosinphils 0.4 thou/uL (0.0-0.7); #Lymphocytes 2.8 thou/uL (1.20-3.40); #Monocytes 0.5 thou/uL (0.11-0.59); #Neutrophils 4.2 thou/uL (1.40-6.50); %Basophils 0.6 % (0.0-1.0); %Eosinophils 5.1 % (0.0-10.0); %Lymphocytes 35.6 % (21.0-51.0); %Neutrophils 52.7 % (42.0-75.0); Hemoglobin 13.2 g/dL (12.0-16.0); Mean Corpuscular HGB CONC 34.2 g/dL (32.0-36.0); Mean Corpuscular Hemoglobin 30.7 pg (27.0-31.0); Mean Corpuscular Volume 89.8 fL (78.0-98.0); Mean Platelet Volume 9.2 fL (7.4-10.4); Platelet Count 161 thou/uL (130-400); RBC Distribution Width 13.1 % (11.5-14.5); Red Blood Cell (RBC) Count 4.28 mill/uL (4.20-5.40)
[2018-07-25 07:16] LABS: ALT (SGPT) 63 U/L (8-55); AST (SGOT) 43 U/L (5-34); Albumin 3.7 g/dL (3.4-4.8); Alkaline Phosphatase 71 U/L (40-150); Anion Gap 9 mmol/L (10-20); BUN (Urea Nitrogen) 13 mg/dL (9.8-20.1); Bilirubin, Total 0.9 mg/dL (0.2-1.2); Calc. Creatinine Clearance 87 mL/min (70-130); Calcium 9.7 mg/dL (7.8-10.44); Carbon Dioxide 26 mmol/L (23-31); Cardiac Risk 2.9 (Less than 4.5); Chloride 109 mmol/L (98-107); Cholesterol 115 mg/dl (< 200 Desired); Estimated GFR-MDRD 75; Globulin 2.7 g/dL (2.4-3.5); Glucose 94 mg/dL (80-115); HDL Cholesterol 39 mg/dL (>60 Neg Risk); LDL Cholesterol, Calculated 54 mg/dL; Magnesium 1.8 mg/dL (1.6-2.6); Phosphorus 3.3 mg/dL (2.3-4.7); Potassium 4.4 mmol/L (3.5-5.1); Protein, Total 6.4 g/dL (6.0-8.3); Sodium 140 mmol/L (136-145); Triglycerides 108 mg/dL (Less than 150)
[2018-07-25] MEDS: Famotidine/PF 20 mg/2ml Vial SLOW IVP SCH (08:40)
[2018-07-25] MEDS: Thyroid 60 MG TAB PO SCH (08:44)
[2018-07-25 12:00] VITALS: BP 126/79; TEMP 97.9
--- NOTE | 2018-07-25 16:54 | DIS ---
DATE OF ADMISSION: 07/20/2018 DATE OF DISCHARGE: 07/25/2018 PRIMARY CARE PROVIDER: Dr. Bishop Barney. DISCHARGE DIAGNOSES: 1. Superior mesenteric artery syndrome. 2. Hypokalemia. 3. Hypophosphatemia. CONSULTATIONS DURING THIS HOSPITALIZATION: 1. General Surgery, Dr. Olvera. 2. Gastroenterology, Dr. Oneal. CONDITION OF PATIENT ON THE DAY OF DISCHARGE: Stable. I assessed Ms. Carroll on the day of discharge. She denies any chest pain or shortness of breath. She is tolerating liquid diet. Vital signs are stable. S1 and S2 are heard, regular. Lungs are clear to auscultation bilaterally. DISCHARGE MEDICATIONS: 1. Risedronate 35 mg every week. 2. Vitamin D3. 3. Vitamin B12 of 5000 mcg daily. 4. Pork Thyroid 120 mg daily. HOSPITAL COURSE: Ms. Carroll is a pleasant 63-year-old lady, who was admitted to [facility] on July 20, 2018, for superior mesenteric artery syndrome. Please refer to Dr. Hollins's history and physical note dated July 20, 2018, for further details. She was seen by Gastroenterology and General Surgery Services. She had EGD on July 20, 2018. She was found to have extrinsic compression of the 3rd portion of the duodenum, consistent with superior mesenteric artery syndrome. She also had a small hiatal hernia. She had difficulty with placement of NG tube. She was seen by General Surgery Service. She had PICC line placed and TPN started. She also had NG tube to suction. She improved clinically. Small bowel x-rays on July 23, 2018, did not show any evidence of small-bowel obstruction. She started tolerating clear fluid diet. It is recommended that she be on full fluid diet for a week, then soft diet for a week, and then after two weeks, she can eat regular food, according to Surgical Service. On the day of discharge, she has sodium of 140, potassium 4.4, creatinine 0.77, AST 43, ALT 63, phosphorus 3.3, white count 8000, hemoglobin 13.2, and platelet count 161,000. She is advised to have her liver function tests rechecked through her primary care provider's office in 3 to 5 days. Many thanks for allowing me to participate in your patient's care. Please feel free to contact me with any questions or concerns. DISCHARGE DESTINATION: Home. TIME SPENT: Total amount of time spent coordinating this discharge: 32 minutes. Job ID: [id number]
[2019-07-21] MEDS ORDERED: Heparin 1,000 UNITS/ML VIAL ONE (11:11)
== END 2018-07-25 13:16 | disposition home or self-care (01) | DRG 394 ==
LOC: ERS 09:05 → SJJU 13:55 → SURG B 21:53
PROVIDERS: ADMIT Internal Medicine; ATTEND Internal Medicine
PROC: 0DJD8ZZ Inspection of Lower Intestinal Tract, Via Natural or Artificial Opening Endoscopic (ICD-10-PCS; principal; 2018-07-20)
PROC: 0DJ08ZZ Inspection of Upper Intestinal Tract, Via Natural or Artificial Opening Endoscopic (ICD-10-PCS; 2018-07-20)
PROC: 02HV33Z Insertion of Infusion Device into Superior Vena Cava, Percutaneous Approach (ICD-10-PCS; 2018-07-21)
PROC: 3E0436Z Introduction of Nutritional Substance into Central Vein, Percutaneous Approach (ICD-10-PCS; 2018-07-21)
DX: K55.1 Chronic vascular disorders of intestine (principal); K31.5 Obstruction of duodenum; M19.90 Unspecified osteoarthritis, unspecified site; K44.9 Diaphragmatic hernia without obstruction or gangrene; E87.6 Hypokalemia; Z53.8 Procedure and treatment not carried out for other reasons; E83.39 Other disorders of phosphorus metabolism; E03.9 Hypothyroidism, unspecified; E66.9 Obesity, unspecified; Z90.49 Acquired absence of other specified parts of digestive tract; Z68.30 Body mass index [BMI] 30.0-30.9, adult
CPT/HCPCS: 36415; 36416; 36569; 74018; 74177; 74250; 80048; 80053; 80061; 83690; 83735; 84100; 84134; 84484; 85025; 85610; 85730; 93005; 93010; 94760; 96374; 96375; 96376; C1751; J1100; J1644; J2001; J2270; J2405; J2704; J3010; J3490; J7050; Q9966; S0028

== ENCOUNTER 2019-03-29 09:40 | Outpatient (CLI) | payer BC ==
--- NOTE | 2019-03-29 10:22 | MMO ---
Bilateral MAMMO Bilat Screen [facility]. CLINICAL HISTORY: Patient is 63 years old and is seen for screening. The patient has no family history of breast cancer. The patient has no personal history of cancer. VIEWS: The views performed were: bilateral craniocaudal with tomosynthesis; bilateral mediolateral oblique with tomosynthesis; and left exaggerated craniocaudal. FILMS COMPARED: The present examination has been compared to prior imaging studies performed at [facility] on 03/19/2017 and 03/25/2018, and at [facility] on 08/09/2014 and 03/12/2016. This study has been interpreted with the assistance of computer-aided detection. MAMMOGRAM FINDINGS: The breasts are heterogeneously dense, which could obscure a lesion on mammography. There is an asymmetry seen in the MLO view only seen in the middle upper region of the right breast. In the left breast, there are no suspicious masses, calcifications or areas of architectural distortion. IMPRESSION: ASYMMETRY IN THE RIGHT BREAST REQUIRES ADDITIONAL EVALUATION. RECOMMEND DIAGNOSTIC MAMMOGRAM. ULTRASOUND MAY ALSO PROVE USEFUL AT RECALL. THE RESULTS OF THIS EXAM WERE SENT TO THE PATIENT. ACR BI-RADS Category 0 - Incomplete: Need additional imaging evaluation. [facility] will notify the patient of the need for additional imaging services. MAMMOGRAPHY NOTE: 1. A negative mammogram report should not delay a biopsy if a dominant of clinically suspicious mass is present. 2. Approximately 10% to 15% of breast cancers are not detected by mammography. 3. Adenosis and dense breasts may obscure an underlying neoplasm. Reported by: OSWALD MORALEZ MD Electonically Signed: [id number]
--- NOTE | 2019-03-29 10:45 | BD ---
DEXA BONE DENSITY EXAM: HISTORY: A 63-year-old postmenopausal female for screening. COMPARISON: 03/12/2016 FINDINGS: HIP BMD (g/cm2) T-SCORE LEFT FEMORAL NECK 0.665 -1.7 TOTAL PROXIMAL LEFT FEMUR 0.872 -0.6 LEFT FOREARM DISTAL THIRD 0.665 -0.5 TOTAL LEFT FOREARM 0.532 -0.9 IMPRESSION: Osteopenia. When compared to the prior examination the bone density in the hip has not changed significantly and the bone density in the forearm has decreased approximately 9%. POS: [facility]
== END 2019-03-29 09:41 | disposition home or self-care (01) ==
LOC: BICMAMMO 09:40
PROVIDERS: ATTEND Obstetrics & Gynecology
DX: Z12.31 Encounter for screening mammogram for malignant neoplasm of breast (principal); M81.0 Age-related osteoporosis without current pathological fracture; M85.852 Other specified disorders of bone density and structure, left thigh; N64.89 Other specified disorders of breast
CPT/HCPCS: 77063; 77067; 77080

== ENCOUNTER 2019-04-01 12:44 | Outpatient (CLI) | payer BC ==
--- NOTE | 2019-04-01 14:28 | MMO ---
Right Breast MAMMO Unilat Diag DDI RT+FERNANDEZ. CLINICAL HISTORY: Patient is 63 years old and is seen for additional evaluation requested at current screening. The patient has no family history of breast cancer. The patient has no personal history of cancer. VIEWS: The views performed were: right mediolateral oblique spot compression with tomosynthesis and right mediolateral with tomosynthesis. FILMS COMPARED: The present examination has been compared to prior imaging studies performed at [facility] on 03/19/2017, 03/25/2018 and 03/29/2019, and at [facility] on 03/12/2016. This study has been interpreted with the assistance of computer-aided detection. MAMMOGRAM FINDINGS: The breast is heterogeneously dense, which could obscure a lesion on mammography. The questionable asymmetric density did not persist with the additional views. There are no suspicious masses, suspicious calcifications, or new areas of architectural distortion. IMPRESSION: THERE IS NO MAMMOGRAPHIC EVIDENCE OF MALIGNANCY. A ROUTINE FOLLOW-UP MAMMOGRAM IN 1 YEAR IS RECOMMENDED. THE RESULTS OF THIS EXAM WERE SENT TO THE PATIENT. ACR BI-RADS Category 2 - Benign finding MAMMOGRAPHY NOTE: 1. A negative mammogram report should not delay a biopsy if a dominant of clinically suspicious mass is present. 2. Approximately 10% to 15% of breast cancers are not detected by mammography. 3. Adenosis and dense breasts may obscure an underlying neoplasm. Reported by: ANNI HERRERA MD Electonically Signed: [id number]
== END 2019-04-01 12:45 | disposition home or self-care (01) ==
LOC: BICMAMMO 12:44
PROVIDERS: ATTEND Obstetrics & Gynecology
DX: R92.2 Inconclusive mammogram (principal)
CPT/HCPCS: G0279

== ENCOUNTER 2020-04-03 10:21 | Outpatient (CLI) | payer MEDICARE ==
--- NOTE | 2020-04-03 11:47 | MMO ---
Bilateral MAMMO Bilat Screen [facility]. CLINICAL HISTORY: Patient is 64 years old and is seen for screening. The patient has no family history of breast cancer. The patient has no personal history of cancer. VIEWS: The views performed were: bilateral craniocaudal with tomosynthesis and bilateral mediolateral oblique with tomosynthesis. FILMS COMPARED: The present examination has been compared to prior imaging studies performed at [facility] on 03/19/2017, 03/25/2018, 03/29/2019 and 04/01/2019. This study has been interpreted with the assistance of computer-aided detection. MAMMOGRAM FINDINGS: The breasts are heterogeneously dense, which could obscure a lesion on mammography. Benign calcifications are noted bilaterally. There are no suspicious masses, suspicious calcifications, or new areas of architectural distortion. IMPRESSION: THERE IS NO MAMMOGRAPHIC EVIDENCE OF MALIGNANCY. A ROUTINE FOLLOW-UP MAMMOGRAM IN 1 YEAR IS RECOMMENDED. THE RESULTS OF THIS EXAM WERE SENT TO THE PATIENT. ACR BI-RADS Category 2 - Benign finding MAMMOGRAPHY NOTE: 1. A negative mammogram report should not delay a biopsy if a dominant of clinically suspicious mass is present. 2. Approximately 10% to 15% of breast cancers are not detected by mammography. 3. Adenosis and dense breasts may obscure an underlying neoplasm. Reported by: ODIN HUTTON MD Electonically Signed: [id number]
--- NOTE | 2020-04-03 11:58 | BD ---
DEXA BONE DENSITY STUDY: Date: 04/03/2020 HISTORY: Postmenopausal. FINDINGS: Femoral Necks: BMD (g/cm2) Left 0.716 T-Score: -1.2 Total 0.914 T-Score: -0.2 Right 0.713 T-Score: -1.2 Total 0.863 T-Score: -0.6 IMPRESSION: Osteopenia of right and left femoral neck. POS: [facility]
== END 2020-04-03 10:22 | disposition home or self-care (01) ==
LOC: BICMAMMO 10:21
PROVIDERS: ATTEND Obstetrics & Gynecology
DX: Z12.31 Encounter for screening mammogram for malignant neoplasm of breast (principal); M81.0 Age-related osteoporosis without current pathological fracture; M85.851 Other specified disorders of bone density and structure, right thigh; M85.852 Other specified disorders of bone density and structure, left thigh
CPT/HCPCS: 77063; 77067; 77080

== ENCOUNTER 2021-04-04 09:49 | Outpatient (CLI) | payer MEDICARE | END 2021-04-04 09:50 | disposition home or self-care (01) | LOC: BICMAMMO 09:49 | PROVIDERS: ATTEND Obstetrics & Gynecology | DX: Z12.31 Encounter for screening mammogram for malignant neoplasm of breast (principal); M81.0 Age-related osteoporosis without current pathological fracture; M85.851 Other specified disorders of bone density and structure, right thigh; M85.852 Other specified disorders of bone density and structure, left thigh | CPT/HCPCS: 77063; 77067; 77080 ==

== ENCOUNTER 2021-05-23 17:30 | Outpatient (CLI) | payer MEDICARE | END 2021-05-23 17:31 | disposition home or self-care (01) | LOC: SLEEPLAB 17:30 | PROVIDERS: ATTEND Internal Medicine Critical Care Medicine | DX: G47.33 Obstructive sleep apnea (adult) (pediatric) (principal); G47.00 Insomnia, unspecified; F32.9 Major depressive disorder, single episode, unspecified; R06.83 Snoring | CPT/HCPCS: 95806 ==

== ENCOUNTER 2022-06-06 08:19 | Outpatient (CLI) | payer MEDICARE | END 2022-06-06 08:20 | disposition home or self-care (01) | LOC: BICMAMMO 08:19 | PROVIDERS: ATTEND Obstetrics & Gynecology | DX: Z12.31 Encounter for screening mammogram for malignant neoplasm of breast (principal); M81.0 Age-related osteoporosis without current pathological fracture; M85.851 Other specified disorders of bone density and structure, right thigh; M85.852 Other specified disorders of bone density and structure, left thigh | CPT/HCPCS: 77063; 77067; 77080 ==